=== PATIENT | male | born 1955 | race Caucasian/White ===

== ENCOUNTER 2018-04-11 18:24 | Emergency (ER) | payer MEDICARE, SELFPAY ==
[2018-04-11 18:25] VITALS: BP 163/95; PULSE 101; RESP 20; TEMP 38.3; O2SAT 97; BMI 20.2
[2018-04-11 21:21] VITALS: BP 151/94; PULSE 90; RESP 17; TEMP 38.4; O2SAT 97
--- NOTE | 2018-04-11 21:32 | ED.RN ---
talked to dr walsh about pt's clinica presentation and asked to order flu, tylenol, and strep test. verbal order given.
[2018-04-11] MEDS: Acetaminophen 500 MG Tablet 1000 MG PO (21:55)
--- NOTE | 2018-04-11 21:55 | RAD_ITS ---
STUDY: X-RAY CHEST REASON FOR EXAM: Male, 63 years old. Fever and sore throat TECHNIQUE: Frontal and lateral views of the chest. COMPARISON: None. FINDINGS: The lungs are clear and expanded. There is no demonstrated pleural abnormality. Normal size heart. Normal mediastinum and quan. Normal visualized pulmonary arteries. Normal visualized aortic arch and descending thoracic aorta. Normal visualized thoracic spine. Normal visualized ribs, clavicles, and shoulders. There is no demonstrated abnormality of the visualized soft tissue structures of the upper abdomen. RAD/Chest PA and Lateral IMPRESSION: Normal x-ray examination of the chest. Electronically Signed: Vance Mahoney MD at 22:43 EST Tel , Service support ,
--- NOTE | 2018-04-11 22:05 | ED.DCSUM_ITS ---
- ER Visit Summary Date of Service: 04/11/18 Chief Complaint: Fever and sore throat History of Present Illness: The patient is a 63 M who presents with sore throat and fever that has been getting worse over the past 5 days. Patient states he noticed a fever at home but did not take his temperature. Patient states his throat feels like it is raw. Patient states it is worse with swallowing. Patient admits to a cough. Patient denies any sputum production. Patient admits to nausea but denies any vomiting. Patient denies any chest pain. Physical Examination: Vital signs are stable. Patient has a temperature of 101.2. Patient is in no acute distress. Oral mucosa is pink and moist. Oropharynx is erythematous. There is no exudate noted. Neck is supple. Trachea is midline. There is no JVD noted. There is no lymphadenopathy noted. Heart was regular rate and rhythm. Lungs are clear and equal bilateral. Abdomen is soft. Bowel sounds are normal. Cranial nerves II through XII are intact. There are no focal motor or sensory deficits noted. The remaining physical exam is within normal limits. Test Results: CBC and metabolic profile were obtained and were normal. Rapid flu swab was obtained and was negative. Rapid strep was negative. PA and lateral chest x-ray was obtained. There is no acute cardiopulmonary process. Emergency Department Course and Treatment: Patient was given a dose of Tylenol here. Patient was feeling better on reevaluation. Patient was advised that this is most likely a viral upper respiratory infection. Patient was instructed to continue Tylenol or Motrin as needed for any pain or fevers. Patient was instructed to follow-up with his primary care physician in 7-10 days. Patient understood and was agreeable with the plan. All questions were answered. Disposition: Discharge home Impression: Viral upper respiratory infection This note was generated with [employer] dictation software. It may contain incorrect words, spelling, and punctuation that were not noted in review of the chart prior to signing ED Disposition - Plan for ED Patient: Disposition: Home or Assisted Living Diagnosis: Viral upper respiratory tract infection with cough Instructions: ED Pharyngitis Viral Referrals: Edmundo Sharpe DO [Primary Care Provider] -
[2018-04-11 22:16] LABS: Absolute Lymphocyte Count 0.74 X10^3/ul (0.83-4.51); Absolute Neutrophil Count 5.2 X10^3/uL (2.0-7.7); Basophil# 0.04 X10^3/uL; Basophil% 0.6 % (0-1); Hematocrit 44.4 % (40-54); Hemoglobin 15.5 g/dl (13.0-16.5); Lymphocyte # 0.74 X10^3/ul (4.0); Lymphocyte % 10.9 % (19-41); Mean Corp Hgb Conc 34.9 g/gl (32-36); Mean Corpuscular Volume 91.7 fL (80-94); Mean Platelet Vol. 10.7 fl (6.2-12.0); Monocyte# 0.76 X10^3/uL; Monocyte% 11.2 % (0-10); Neutrophil # 5.24 X10^3/uL (2.7-7.7); Neutrophil % 77.2 % (47-70); Platelet Count 162 K/mm3 (150-450); RBC Distribution Width SD 43.6 fl (35.1-43.9); Red Blood Count 4.84 M/mm3 (4.6-6.2); White Blood Count 6.8 K/mm3 (4.4-11.0)
[2018-04-11 22:17] LABS: POSITIVE COUNT NO; POSITIVE DIFFERENTIAL NO; POSITIVE MORPHOLOGY NO
[2018-04-11 22:20] VITALS: BP 143/90; PULSE 74; RESP 18; TEMP 38.4; O2SAT 96
[2018-04-11 22:29] LABS: Anion Gap 9 (5-15); BUN 18 mg/dL (7-18); BUN/Creat Ratio 20.9 RATIO (10-20); Calcium,Total 8.2 mg/dL (8.5-10.1); Chloride 102 mmol/L (98-107); Creatinine, Serum 0.86 mg/dL (0.70-1.30); EST Glomerular Filtration Rate 96 mL/min (>60); Est Glom Filt Rate - Afr Amer 116 mL/min (>60); Estimated Creatinine Clearance 86.23 ml/min; Glucose 113 mg/dL (74-106); Potassium 3.9 mmol/L (3.5-5.1); Sodium Level 134 mmol/L (136-145)
[2018-04-12 00:04] VITALS: BP 136/83; PULSE 73; RESP 14; TEMP 37.6; O2SAT 99
== END 2018-04-12 00:04 | disposition home or self-care (01) ==
PROVIDERS: Emergency Provider Emergency Medicine; Family Provider Family Medicine; PCP Family Medicine
DX: J06.9 Acute upper respiratory infection, unspecified (principal); I10 Essential (primary) hypertension; I49.9 Cardiac arrhythmia, unspecified; Z79.899 Other long term (current) drug therapy; Z72.0 Tobacco use
CPT/HCPCS: 71046; 80048; 85025; 87804; 87880; 99284; A4216

== ENCOUNTER 2018-08-05 17:55 | Emergency (ER) | payer MEDICARE, SELFPAY ==
[2018-08-05 17:56] VITALS: BP 139/71; PULSE 63; RESP 17; TEMP 36.9; O2SAT 98; BMI 21.0
--- NOTE | 2018-08-05 19:45 | ED.DCSUM_ITS ---
- ER Visit Summary Date of Service: 08/05/18 Chief Complaint: Dressing change/wound check History of Present Illness: The patient is a 63 M who is here because he wants his dressings changed and would like his wound checked. On August 02 his fingers got caught in a running lawnmower. He went to [facility]. They cleansed his wounds and dressed them. They gave him an antibiotic cream. He states that they did have some slight bleeding but otherwise he denies any drainage. Has not noticed any redness. He denies any significant pain. Physical Examination: Vital signs are reviewed. Right hand, third and fourth fingers shows healing wounds distally. There is no erythema or drainage. Overall these wounds look well. Test Results: None performed Emergency Department Course and Treatment: Patient had his wounds cleansed. They look very well. There is no signs of infection. I feel he can be discharged with new dressings. He will follow-up with his doctors next week. Treatment Plan: [] Disposition: Discharge Impression: Wound check, right third and fourth fingers This note was generated with [employer] dictation software. It may contain incorrect words, spelling, and punctuation that were not noted in review of the chart prior to signing ED Disposition - Plan for ED Patient: Disposition: Home or Assisted Living Instructions: ED Wound Check Post Op No Infec Referrals: Edmundo Sharpe DO [Primary Care Provider] -
== END 2018-08-05 20:23 | disposition home or self-care (01) ==
PROVIDERS: Emergency Provider Emergency Medicine; Family Provider Family Medicine; PCP Family Medicine
DX: Z48.00 Encounter for change or removal of nonsurgical wound dressing (principal); I10 Essential (primary) hypertension; M32.9 Systemic lupus erythematosus, unspecified; Z72.0 Tobacco use
CPT/HCPCS: 99282

== ENCOUNTER 2023-02-02 18:01 | Emergency (ER) | payer MEDICARE, MEDICAID, SELFPAY ==
[2023-02-02 18:01] VITALS: BP 116/84; PULSE 117; RESP 22; TEMP 37.2; O2SAT 94; BMI 19.6
[2023-02-02 19:01] VITALS: BP 116/70; PULSE 80; RESP 12; O2SAT 95
--- NOTE | 2023-02-02 19:09 | EX.ED.DYSGE1 ---
HPI History of Present Illness Chief Complaint: Shortness of Breath Narrative Narrative: 68-year-old male presenting with cough. He states he had it for 3 weeks. He initially tried to get over this with Mucinex. He relates that he has a history of tobacco use, and sarcoidosis. Patient initially had chills, cough, congestion. He has been on 2 courses of antibiotics from the urgent care. Patient states he had a chest x-ray which showed a possible mass in the right upper lobe. Patient states he had a little bit of nausea today and went to the urgent care who told him to come to the emergency room for blood work and repeat imaging on possibly a CT scan. Patient reports to me that he has a follow-up CT scan scheduled for Sunday. He does not any fevers, chills, body aches. Eating and drinking normally. He is making normal urine and stool. He does not have any chest pain. He has a mild cough which is nonproductive. No hemoptysis. [facility] Medical History Arrhythmia Lupus Home Medications aspirin 81 mg chewable tablet 81 mg PO DAILY@0800 04/11/18 [History Last Taken Unknown] hydroxychloroquine 200 mg tablet 100 mg PO DAILYCM 04/11/18 [History Last Taken Unknown] Allergy/AdvReac Type Severity Reaction Status Date / Time amoxicillin Allergy Rash Verified 08/05/18 17:55 Social History Smoking Status: Current every day smoker tobacco type: cigarettes ROS ROS ED Constitutional Constitutional ED: Denies chills, fever(s) or sweats Eyes Eyes: Denies blurry vision or change in vision ENT ENT ED: Denies ear pain or sore throat Cardiovascular Cardiovascular: Denies chest pain, palpitations or racing heartbeat Respiratory/Chest Respiratory/Chest: Reports cough; Denies dyspnea or sputum Gastrointestinal Gastrointestinal: Denies abdominal pain, constipation, diarrhea, nausea or vomiting Genitourinary Genitourinary ED: Denies dysuria, hematuria or urinary frequency Musculoskeletal Musculoskeletal: Denies arthralgias, myalgias or neck pain Integumentary Denies abscess, Abrasions or rash Neurologic Neurologic: Denies headache(s), paresthesias or weakness Psychiatric Psychiatric: Denies anxiety, depression, suicidal ideation or suicidal thoughts Endocrine Endocrinology: Denies polydipsia or polyuria EXAM Physical Exam Const Vital Signs: 02/02/23 18:01 02/02/23 18:28 02/02/23 19:01 Temperature 99 F Temperature Source Temporal Pulse Rate 117 H 80 Respiratory Rate 22 H 12 Respiratory Effort Short of Breath Respiratory Depth Normal Respiratory Pattern Normal Blood Pressure 116/84 H 116/70 Blood Pressure Mean 94 85 Pulse Ox 94 95 Oxygen Delivery Method Room Air Room Air Positive well nourished General Appearance ED: NAD; Negative for pallor HEENT Reports moist mucous membranes Eyes PERRL and EOMs intact bilaterally Neck no lymphadenopathy Chest Wall inspection of chest normal Resp normal respiratory effort and clear to auscultation bilaterally Cardio regular rate and regular rhythm GI normal to inspection, nondistended, normoactive bowel sounds Extremity normal to inspection General Extremety ED: Negative for edema General Extremity: Negative for edema Neuro oriented x3 and CN's II-XII intact bilaterally Sensorium / Orientation: alert Psych mental status grossly normal Skin no rashes or lesions noted and no wounds General Skin Exam: Negative for jaundice or pallor MDM MDM MDM Narrative Medical decision making narrative: Well-appearing 68-year-old male presenting for evaluation. He states he was sent by the urgent care because he had a normal chest x-ray last week. He is initially treated for pneumonia x 2 with antibiotics and steroids. He continues to smoke a pack a day. Patient has not had a return of congestion. Denies chest pain. He does not any significant shortness of breath. No fevers or chills. Patient states he went to the urgent care for some nausea medicine but states his nausea resolved. He was sent to the ER for further workup. Physical exam unremarkable. Heart regular rate and rhythm without murmur. Respiratory rate normal at 12. Lungs clear to auscultation. Oxygen 95% on room air. Discussed with the patient that we can do lab work and imaging however if he has appropriate follow-up this is reasonable as he already has a CT ordered follow-up for Sunday. After discussing this at length the patient decided that he would prefer to follow-up as an outpatient. I do not believe he needs another antibiotic as he is been on 2 courses. I did give him return precautions. Impression: 1. History of pneumonia 2. History of lung mass 3. History of tobacco abuse Lab Data Attestation: I reviewed the patient's lab results. Discharge Plan Triage Chief Complaint: Shortness of Breath ED Provider: Asim Gonzalez Dx/Rx/DC Orders Instructions: ED Dyspnea Prescriptions: No Action aspirin 81 MG tablet,chewable 81 mg PO DAILY@0800 hydroxychloroquine 200 MG tablet 100 mg PO DAILYCM Primary Care Provider: Care Physician,No Primary Referrals: Edmundo Sharpe DO [Med Staff - [employer]] - Disposition Disposition: Home, Self Care
--- NOTE | 2023-02-02 20:32 | EKG12_ITS ---
Test Reason : SOB Blood Pressure : / mmHG Vent. Rate : 088 BPM Atrial Rate : 088 BPM P-R Int : 142 ms QRS Dur : 096 ms QT Int : 348 ms P-R-T Axes : 074 -09 040 degrees QTc Int : 421 ms Normal sinus rhythm Biatrial enlargement Abnormal ECG Confirmed by MARGARITA BISHOP, ROSE ([id number]), editor department MADELINE OLMSTEAD ([id number]) on 02/05/2023 1:36:46 P M Referred By: JOLYNN Confirmed By:SHREYA AVILA MD
== END 2023-02-02 19:17 | disposition home or self-care (01) ==
LOC: ED 19:08
PROVIDERS: Emergency Provider Student in an Organized Health Care Education/Training Program; Visit Provider Student in an Organized Health Care Education/Training Program
DX: R06.02 Shortness of breath (principal); F17.210 Nicotine dependence, cigarettes, uncomplicated
CPT/HCPCS: 93005; 99283; A4216

== ENCOUNTER → 2023-03-28 | Outpatient (CLI) | payer MEDICARE, MEDICAID, SELFPAY ==
--- NOTE | 2023-03-28 09:45 | RAD_ITS ---
STUDY: X-RAY - ESOPHAGUS (BARIUM SWALLOW) WITH FLUOROSCOPY REASON FOR EXAM: Male, 68 years old. Dysphagia, pharyngoesophageal phase TECHNIQUE: 19 view(s) of the esophagus were obtained following swallowing of barium. Extremely limited study. The patient would not ingest enough barium for proper evaluation. FLUOROSCOPY TIME (if supplied): (41 seconds) minutes/seconds COMPARISON: None. FINDINGS: Nondiagnostic study. Patient refused to drink appropriate amount of barium for assessment. There is evidence of right hilar mass. A CT scan of thorax is recommended for reevaluation. RAD/Esophagus Dual Contrast IMPRESSION: Nondiagnostic study. Right hilar mass. Correlation with the CT scan of the thorax is recommended for further evaluation. Electronically Signed: Alton Russ MD at 10:29 EST ,
== END | disposition home or self-care (01) ==
LOC: RAD 09:37
PROVIDERS: Referring Provider Otolaryngology Otolaryngology/Facial Plastic Surgery; Visit Provider Otolaryngology Otolaryngology/Facial Plastic Surgery
DX: R13.14 Dysphagia, pharyngoesophageal phase (principal)
CPT/HCPCS: 74221

== ENCOUNTER 2023-03-30 17:50 | Inpatient (IN) | payer MEDICARE, MEDICAID, SELFPAY ==
[2023-03-30 17:52] VITALS: BP 102/77; PULSE 164; RESP 24; TEMP 36.2; O2SAT 93; O2SAT 96; BMI 17.8
--- NOTE | 2023-03-30 18:06 | ED.VIS.GI ---
HPI HPI - GI History of Present Illness Chief Complaint: Abd Pain Informant: patient Abdominal Pain/Flank Pain Onset: Days (5) Context: Sudden Onset Timing: Intermittent Quality: Sharp and Stabbing Location: RLQ and LLQ Worsened by: Nothing Relieved by: Nothing Nausea/Vomiting/Emesis GI Symptom: Positive for Nausea; Negative for Vomiting Diarrhea/Melena/Hematochezia GI Symptom: Negative for Diarrhea, Melena or Hematochezia Associated Symptoms Associated Symptoms: Negative for Dysuria, Frequency or Hematuria Narrative Narrative: Patient presents with abdominal pain, constipation, and cough that has been getting progressively worse over the last 5 days. Patient states his pain is mainly over his lower abdomen. Patient states he has not had a bowel movement for the past 5 days. Patient describes the pain as sharp and stabbing. Patient admits to some nausea but denies any vomiting. Patient denies any dysuria, frequency, or hematuria. Patient admits to a cough but denies any sputum production. Patient denies any fevers or chills. Patient denies any chest pain. Patient states he has a history of lung cancer. Patient states he has seen an oncologist in [place] for his cancer but he did not want any treatment for it. [facility] Medical History Arrhythmia Lung cancer Lupus Home Medications aspirin 81 mg chewable tablet 81 mg PO DAILY@0800 04/11/18 [History Last Taken Unknown] hydroxychloroquine 200 mg tablet 100 mg PO DAILYCM 04/11/18 [History Last Taken Unknown] Allergy/AdvReac Type Severity Reaction Status Date / Time amoxicillin Allergy Rash Verified 08/05/18 17:55 Surgical History no surgical history no surgical history Social History Smoking Status: Former smoker ROS ROS ED Constitutional Constitutional ED: Denies chills or fever(s) Eyes Eyes: Denies blurry vision or change in vision ENT ENT ED: Denies rhinorrhea or sore throat Cardiovascular Cardiovascular: Denies chest pain or palpitations Respiratory/Chest Respiratory/Chest: Reports cough; Denies dyspnea Gastrointestinal Gastrointestinal: Reports abdominal pain, constipation and nausea; Denies vomiting Genitourinary Genitourinary ED: Denies dysuria or hematuria Musculoskeletal Musculoskeletal: Denies back pain or neck pain Integumentary Denies abscess or rash Neurologic Neurologic: Denies headache(s) or weakness Allergic/Immunologic Allergic/Immunologic ED: Denies mouth swelling or urticaria EXAM Physical Exam Const Vital Signs: 03/30/23 17:52 03/30/23 19:18 03/30/23 20:00 Temperature 97.2 F L Temperature Source Temporal Pulse Rate 164 H 117 H 135 H Respiratory Rate 24 H 23 H 22 H Blood Pressure 102/77 116/79 89/51 L Blood Pressure Mean 85 91 63 Pulse Ox 96 93 93 Oxygen Delivery Method Room Air Room Air Nasal Cannula Oxygen Flow Rate (L/min) 2 03/30/23 20:34 03/30/23 21:11 Temperature Temperature Source Pulse Rate 148 H 120 H Respiratory Rate 20 H 20 H Blood Pressure 99/67 97/60 Blood Pressure Mean 77 72 Pulse Ox 93 96 Oxygen Delivery Method Nasal Cannula Nasal Cannula Oxygen Flow Rate (L/min) 2 2 Positive well nourished and well developed General Appearance ED: well developed and NAD HEENT Reports dry mucous membranes Mouth ED: Yes dry mucous membranes Mouth: dry mucous membranes Neck supple and no JVD Resp Auscultation: wheezes expiratory wheezes and scattered wheezes Cardio Rate: tachycardic Rhythm: abnormal rhythm irregularly irregular GI Palpation: soft and tender LLQ, RLQ and suprapubic; Negative for guarding or rebound tenderness present Rectal Exam: normal sphincter tone and other Other Details: There is soft brown stool in the rectum. There were no masses palpated. Neuro CN's II-XII intact bilaterally, moves all extremities and no sensory deficits noted Sensorium / Orientation: alert Motor Exam: strength 5/5 throughout Psych mental status grossly normal and thought process normal MDM MDM MDM Narrative Medical decision making narrative: Differential diagnosis includes constipation, bowel obstruction, pneumonia, pneumothorax, urinary tract infection, cardiac dysrhythmia, cardiac ischemia, and electrolyte abnormality. EKG will be obtained to assess for cardiac dysrhythmia and cardiac ischemia. Chest x-ray will be obtained to assess for pneumonia and pneumothorax. CT scan of the abdomen pelvis will be obtained to assess for bowel obstruction, perforation, and constipation. CBC will be obtained to assess for leukocytosis and anemia. Comprehensive metabolic profile will be obtained to assess for hepatic function, renal function, and electrolyte abnormality. Urinalysis will be obtained to assess for urinary tract infection. Lab Data Attestation: I reviewed the patient's lab results. Lab results narrative: CBC was reviewed. There is mild leukocytosis of 12.7. There is a slight anemia with a hemoglobin of 11.7 and hematocrit 36.2. PT with INR and PTT were reviewed and were within normal limits. Comprehensive metabolic profile was reviewed. Creatinine was 1.5 and BUN was 24. These are increased slightly from previous results. Potassium was slightly low at 3.2. Lactate was reviewed and was normal at 1.7. High-sensitivity troponin was reviewed and was normal at 15. 2-hour repeat high-sensitivity troponin was reviewed and was normal at 15. Patient refused COVID, influenza, and RSV PCR. Labs: Laboratory Results - last 24 hr 03/30/23 03/30/23 18:45 21:49 WBC 12.7 H RBC 4.19 L Hgb 11.7 L Hct 36.2 L MCV 86.4 MCH 27.9 MCHC 32.3 RDW Std Deviation 42.7 RDW Coeff of Presley 13.6 Plt Count 423 MPV 11.9 Immature Gran % (Auto) 0.500 Neut % (Auto) 82.7 H Lymph % (Auto) 9.2 L [place] % (Auto) 6.0 Eos % (Auto) 1.0 Baso % (Auto) 0.6 Absolute Neuts (auto) 10.5 H Absolute Lymphs (auto) 1.17 Nucleated RBC % 0 PT 13.8 INR 1.1 APTT 29.0 Sodium 139 Potassium 3.2 L Chloride 104 Carbon Dioxide 29.0 Anion Gap 6 BUN 24 H Creatinine 1.50 H Estim Creat Clear Calc 40.84 Est GFR (MDRD) Af Amer 60 Est GFR (MDRD) Non-Af 50 L BUN/Creatinine Ratio 16.0 Glucose 122 H Lactic Acid 1.7 Calcium 12.5 H Total Bilirubin 0.50 AST 12 L ALT 17 Alkaline Phosphatase 89 Troponin I High Sens 15 15 Total Protein 6.6 Albumin 2.1 L Globulin 4.5 H Albumin/Globulin Ratio 0.5 L Radiography Chest X-Ray - ED: 1 View, Read by ED Physician, Read by Radiologist and - (Right lower lobe opacity suspicious for mass) Diagnostic Testing: Clinical Impression(s) from Imaging Studies Chest X-Ray 03/30/23 19:10 IMPRESSION: 1. Volume loss, right hilar/medial lower lobe opacity suspicious for collapsed or atelectatic lung. Obstructing mass is not excluded. Associated abnormal reticulations may be infectious or neoplastic in etiology. Correlation with contrast-enhanced CT of the chest is recommended. Electronically Signed: Magno Soares, at 20:05 EST , Portable chest x-ray was obtained. There is 1 view. On my independent interpretation, there is some volume loss and right lower lobe opacity. Bony thorax is normal. There is no cardiomegaly noted. Radiologist also interpreted the x-ray and agrees. Patient does have a known history of lung cancer. This opacity may be his known cancer. EKG Initial EKG: Attestation: I personally reviewed and interpreted this EKG as follows: Interpretation: Atrial Fibrillation (164) and Non-Specific ST Changes Comments: EKG was obtained. On my independent interpretation, shows atrial fibrillation with a rate of 164. QRS interval was normal at 106 ms. QTc interval was normal at 442 ms. There is left axis deviation at -46. There are nonspecific ST-T wave changes noted. Prior EKG tracings: available for review Prior: Changed (Compared to EKG dated 02/02/2023, the atrial fibrillation is new. The nonspecific ST-T wave changes are also new but these are likely related to the rapid rate) Treatment and Re-Evaluation :: Patient was given IV fluids. Patient was given a bolus of Cardizem. Patient's heart rate improved to 120 and is currently in the 120s to 130s. Patient's blood pressure was 97/60. Patient was given another fluid bolus. Patient blood pressure improved after this. Patient was advised of the need for admission to the hospital for new onset A-fib with RVR. Patient is agreeable with this. Case will be discussed with the hospitalist. Hospitalist preferred amiodarone IV bolus and drip. This was ordered. He will admit the patient to his service. He requested consulting surgery. Case will be discussed with Dr. Amato from general surgery. He will see the patient in consultation tomorrow morning. Patient understands and is agreeable with the plan. All questions were answered. Discharge Plan Triage Chief Complaint: Abd Pain ED Provider: Aleksandar John Dx/Rx/DC Orders Clinical Impression: Lung cancer, Obstipation, Atrial fibrillation with rapid ventricular response Prescriptions: No Action aspirin 81 MG tablet,chewable 81 mg PO DAILY@0800 hydroxychloroquine 200 MG tablet 100 mg PO DAILYCM Primary Care Provider: Kimmy Oswald Referrals: Care Physician,No Primary [Non-Staff] - Disposition Disposition: Acute Care Hospital [facility]
[2023-03-30] MEDS: 0.9% Normal Saline (1000mL) 1,000 ML 1000 ML IV ×2 (18:20→20:20)
--- NOTE | 2023-03-30 18:23 | EKG12_ITS ---
Test Reason : Blood Pressure : / mmHG Vent. Rate : 164 BPM Atrial Rate : 000 BPM P-R Int : 000 ms QRS Dur : 106 ms QT Int : 268 ms P-R-T Axes : 000 -46 122 degrees QTc Int : 442 ms Critical Test Result: High HR Atrial fibrillation with rapid ventricular response Left axis deviation ST & T wave abnormality, consider lateral ischemia Abnormal ECG Confirmed by Magno German ([id number]), technical writer and editor MADELINE OLMSTEAD ([id number]) on 04/03/2023 9:43:53 AM Referred By: Kiko Otero Confirmed By:Magno German
--- NOTE | 2023-03-30 18:24 | CT_ITS ---
INDICATION: Abdominal pain -- IV PO Contrast EXAMINATION: CT ABDOMEN AND PELVIS WITH CONTRAST - CT Abdomen And Pelvis W/ Contrast Injection TECHNIQUE: Helically acquired images were obtained of the abdomen and pelvis following IV contrast. A radiation dose optimization technique was used for this scan. IV Contrast dosage and agent: 100 mL of Isovue-370 Oral contrast: The Gastrografin COMPARISON: CT chest May 17, 2015. Also compared with chest x-ray March 30, 2023. FINDINGS: No intra-abdominal fat limiting assessment of the abdomen. LOWER CHEST: Dense right lower lobe consolidation with small underlying pleural effusions. Incompletely visualized right lung volume loss. No cardiomegaly or pericardial effusion. LIVER: Homogeneous. No focal mass. GALLBLADDER AND BILIARY TREE: No calcified gallstones. No gallbladder distension or wall edema. No intra- or extrahepatic biliary ductal dilation. PANCREAS: No focal cystic or solid mass. SPLEEN: Normal size without focal cystic or solid mass. ADRENAL GLANDS: No nodules. KIDNEYS, URETERS and BLADDER: Normal renal size and position. No mass. No hydronephrosis. Bladder is unremarkable. PERITONEUM: No ascites or free air. No other fluid collection. BOWEL: No evidence of acute appendicitis. Enteric contrast is passed through the small bowel into the colon. No evidence of small bowel obstruction. No fold thickening or inflammatory changes suggested. There is some stool in the cecum and descending colon but no abnormal colonic distention. The distal transverse and descending colon are collapsed. There is distention of the stool-filled rectal vault measuring 7.7 x 6.4 cm. Stool outside the colon suggesting incontinence. LYMPH NODES: No enlarged mesenteric or retroperitoneal lymph nodes. VESSELS: Aorta is non-dilated. Intimal calcifications are present. No high-grade stenosis. REPRODUCTIVE ORGANS: No significant prostate enlargement. ABDOMINAL WALL: No discrete abdominal or pelvic wall hernia. BONES: No lytic or blastic abnormality. No fracture or malalignment. Age expected degenerative changes lumbar spine with no significant central spinal canal stenosis. CT/Abdomen/Pelvis WITH Contrast IMPRESSION: 1. No acute intra-abdominal pathology. Mildly distended, stool-filled rectal vault and evidence of incontinence. 2. Suspicious right lower lobe consolidation and/or mass small right pleural effusion. Infectious etiology favored. Neoplasm could have a similar appearance. Electronically Signed: Magno Soares DO at 23:27 EST ,
[2023-03-30 18:54] LABS: Absolute Lymphocyte Count 1.17 X10^3/uL (0.83-4.51); Absolute Neutrophil Count 10.5 X10^3/uL (2.0-7.7); Basophil# 0.07 X10^3/uL; Basophil% 0.6 % (0-1); Eosinophil# 0.13 X10^3/uL; Hematocrit 36.2 % (40-54); Hemoglobin 11.7 g/dL (13.0-16.5); Lymphocyte # 1.17 X10^3/ul (0.83-4.51); Lymphocyte % 9.2 % (19-41); Mean Corp Hgb Conc 32.3 g/dL (32-36); Mean Corpuscular Hgb 27.9 pg (27.0-32.0); Mean Corpuscular Volume 86.4 fL (80-94); Mean Platelet Vol. 11.9 fl (6.2-12.0); Monocyte# 0.76 X10^3/uL; NRBC Flagged by Analyzer 0 % (0-5); Neutrophil # 10.53 X10^3/uL (2.7-7.7); Neutrophil % 82.7 % (47-70); Platelet Count 423 K/mm3 (150-450); RBC Distribution Width CV 13.6 % (11.6-14.6); RBC Distribution Width SD 42.7 fl (35.1-43.9); Red Blood Count 4.19 M/mm3 (4.6-6.2); White Blood Count 12.7 K/mm3 (4.4-11.0)
[2023-03-30 19:10] LABS: International Normalized Ratio 1.1; Prothrombin Time (Protime)PT. 13.8 SECONDS (11.7-14.9)
--- NOTE | 2023-03-30 19:10 | RAD_ITS ---
INDICATION: Cough EXAMINATION/TECHNIQUE: X-RAY - XR Chest 1 View COMPARISON: Chest x-ray April 11, 2018. FINDINGS: LINES/DEVICES: None. LUNGS: Asymmetric right-sided volume loss with asymmetric elevation right hemidiaphragm, diaphragmatic tenting and increased density medial right lower lobe suspicious for atelectatic/collapsed left lower lobe pulmonary segment. There is also significant abnormal reticulations which may be infectious or neoplastic in etiology. Correlation with CT chest is recommended. No pleural effusion or pneumothorax. Left lung is clear. There does appear to be increased lung volumes suspicious for air trapping. MEDIASTINUM AND CARDIOVASCULAR STRUCTURES: Normal size and contour of the cardiomediastinal silhouette. No evidence of pulmonary vascular congestion. BONES AND SOFT TISSUES: No fracture or focal osseous lesion. RAD/Chest 1 View (Portable) IMPRESSION: 1. Volume loss, right hilar/medial lower lobe opacity suspicious for collapsed or atelectatic lung. Obstructing mass is not excluded. Associated abnormal reticulations may be infectious or neoplastic in etiology. Correlation with contrast-enhanced CT of the chest is recommended. Electronically Signed: Magno Soares DO at 20:05 EST ,
[2023-03-30] MEDS: dilTIAZem 25 MG/5 ML Vial 20 MG IV BOLUS (19:13)
[2023-03-30 19:17] LABS: ALB/GLOB Ratio 0.5 RATIO (0.9-2.4); AST(SGOT) 12 U/L (15-37); Alanine Aminotransfer ALT/SGPT 17 U/L (16-61); Albumin, Serum 2.1 g/dL (3.2-5.0); Alkaline Phosphatase 89 U/L (45-117); Anion Gap 6 (5-15); BUN 24 mg/dL (7-18); Calcium,Total 12.5 mg/dL (8.5-10.1); Chloride 104 mmol/L (98-107); EST Glomerular Filtration Rate 50 mL/min (>60); Est Glom Filt Rate - Afr Amer 60 mL/min (>60); Estimated Creatinine Clearance 40.84 ml/min; Globulin 4.5 g/dL (2.2-4.2); Glucose 122 mg/dL (74-106); Potassium 3.2 mmol/L (3.5-5.1); Protein, Total 6.6 g/dL (6.4-8.2); Sodium Level 139 mmol/L (136-145); Troponin-I HS (w/2H Reflex) 15 pg/mL (3.0-78.0)
[2023-03-30 19:18] VITALS: BP 116/79; PULSE 117; RESP 23; O2SAT 93
[2023-03-30 19:23] LABS: Lactic Acid 1.7 mmol/L (0.4-1.9)
[2023-03-30 20:00] VITALS: BP 89/51; PULSE 135; RESP 22; O2SAT 93
[2023-03-30 20:34] VITALS: BP 99/67; PULSE 148; RESP 20; O2SAT 93
[2023-03-30 20:52] LABS: Reflex Troponin-HS? (from REC) Y
--- NOTE | 2023-03-30 21:09 | ED.RN ---
pt refused nasal swab, Dr. John informed of same.
[2023-03-30 21:11] VITALS: BP 97/60; PULSE 120; RESP 20; O2SAT 96
[2023-03-30 22:21] LABS: Troponin-I HS 15 pg/mL (3.0-78.0)
--- NOTE | 2023-03-30 23:25 | PCM.HP.STD ---
[facility] Date of Admission: 03/30/23 Date of Service: 03/30/23 Chief Complaint: Lower abdominal pain for about 5 days, did not move bowel for about 7 days. Loss of weight. [facility] Narrative NICK THACKER, is a 68 M with history of lung cancer was brought by EMS for lower abdominal pain and did not had bowel movement for about 7 days. Patient states he has not been able to eat or drink last week as it brings of cough and what ever he drinks it comes back right away. Patient diagnosed lung cancer and states his oncologist is a lady doctor in [facility]. During his hospitalization there, he had probably swallow test but patient could not tell about the result but said he had to see GI doctor. He describes abdominal pain intermittent mainly lower abdomen with discomfort with sharp pain lasting for about couple minutes several times a day. Denies blood in the stool or vomiting but has not had bowel movement for 7 days as mentioned above. No fever or chills. Patient is also lost about 30 pounds in about 4 to 5 months. Patient also has cough but denies any recent change in last 1 week. Denies any sputum production or increased shortness of breath in the last few weeks. In ED, patient was found A-fib with RVR, heart rate in 150s. Patient was given 20 mg IV Cardizem and heart rate was brought down to 120s but also caused low blood pressure 99/51 but currently it is 97/60. Therefore amiodarone IV infusion is started with bolus. He knows that he has A-fib but not on anticoagulant, reason unclear but patient said no one has told him about that. Patient had chest x-ray which shows right lower lobe consolidation. Had CT abdomen/pelvis. Twelve-lead EKG shows A-fib with RVR At 164 bpm. QRS 76 ms, QTc 442 ms, LAD, nonspecific ST-T changes [facility] Medical History Arrhythmia Lung cancer Lupus Home Medications aspirin 81 mg chewable tablet 81 mg PO DAILY@0800 04/11/18 [History Last Taken Unknown] hydroxychloroquine 200 mg tablet 100 mg PO DAILYCM 04/11/18 [History Last Taken Unknown] Allergy/AdvReac Type Severity Reaction Status Date / Time amoxicillin Allergy Rash Verified 08/05/18 17:55 Surgical History no surgical history Social History Smoking Status: Former smoker ROS ROS Narrative Constitutional: Reports chronic fatigue and weakness. No fever. HEENT: Cough while swallowing. Reports systems reviewed and no addt'l complaints, except as documented Respiratory/Chest: Mild chronic cough and dyspnea on exertion CVS: Denies chest pressure or pain. Chronic A-fib Gastrointestinal: As described in HPI Genitourinary: Denies burning urination or new urinary tract symptoms Musculoskeletal: Denies acute joint pain or limited range of motion. No acute injury Neurologic: Denies seizure-like symptoms. skin: No ulcer. No rash Endocrinology: Reports systems reviewed and no addt'l complaints, except as documented Hematologic/Lymphatic: Reports systems reviewed and no addt'l complaints, except as documented Rest 14 ROS are negative except as mentioned in HPI Vital Signs Vital Signs Vital Signs: 03/30/23 17:52 03/30/23 19:18 03/30/23 20:00 Temperature 97.2 F L Temperature Source Temporal Pulse Rate 164 H 117 H 135 H Respiratory Rate 24 H 23 H 22 H Blood Pressure 102/77 116/79 89/51 L Blood Pressure Mean 85 91 63 Pulse Ox 96 93 93 Oxygen Delivery Method Room Air Room Air Nasal Cannula Oxygen Flow Rate (L/min) 2 03/30/23 20:34 03/30/23 21:11 Temperature Temperature Source Pulse Rate 148 H 120 H Respiratory Rate 20 H 20 H Blood Pressure 99/67 97/60 Blood Pressure Mean 77 72 Pulse Ox 93 96 Oxygen Delivery Method Nasal Cannula Nasal Cannula Oxygen Flow Rate (L/min) 2 2 Weight Weight: 131 lb 6.328 oz Body Mass Index (BMI) 17.8 Physical Exam Narrative General: Alert, Oriented x3, Cooperative, BMI 17.8 kg/m? HEENT: Atraumatic, PERRLA, EOMI, Normocephalic Oral: Oral mucosa dry, tongue parched. No Gingival or Mucosal Lesions/ Ulcerations Neck: Supple, No JVD, Negative Carotid Bruits Chest wall/Lungs: Air entry diminished more in right lung base. Bilateral fine expiratory rhonchi Cardiovascular: Irregular rate, A-fib RVR, No M/G/R Abdomen: Bowel Sounds Present, Soft, Non Tender, Non-Distended : No dysuria. No renal angle tenderness. No suprapubic tenderness. Extremities: No edema, Capillary Refill Less than 3 Seconds Skin: No rashes, No breakdown Musculoskeletal: No Tenderness to Palpation of Joints or Extremities. Decreased muscle bulk of thigh and calf, extremities, chest wall muscles, intercostal and paravertebral muscles. Loss of subcutaneous fat Neurological: Cranial nerves II-XII grossly intact, DTR 2+/4. No acute focal neurological deficit. Psych/Mental Status: Normal Affect, Appropriate. Results Lab / Micro Data 03/30/23 18:45 03/30/23 18:45 Labs: Laboratory Results - last 24 hr 03/30/23 18:45: WBC 12.7 H, RBC 4.19 L, Hgb 11.7 L, Hct 36.2 L, MCV 86.4, MCH 27.9, MCHC 32.3, RDW Std Deviation 42.7, RDW Coeff of Presley 13.6, Plt Count 423, MPV 11.9, Immature Gran % (Auto) 0.500, Neut % (Auto) 82.7 H, Lymph % (Auto) 9.2 L, Weak[place] % (Auto) 6.0, Eos % (Auto) 1.0, Baso % (Auto) 0.6, Absolute Neuts (auto) 10.5 H, Absolute Lymphs (auto) 1.17, Nucleated RBC % 0, PT 13.8, INR 1.1, APTT 29.0, Sodium 139, Potassium 3.2 L, Chloride 104, Carbon Dioxide 29.0, Anion Gap 6, BUN 24 H, Creatinine 1.50 H, Estim Creat Clear Calc 40.84, Est GFR (MDRD) Af Amer 60, Est GFR (MDRD) Non-Af 50 L, BUN/Creatinine Ratio 16.0, Glucose 122 H, Lactic Acid 1.7, Calcium 12.5 H, Total Bilirubin 0.50, AST 12 L, ALT 17, Alkaline Phosphatase 89, Troponin I High Sens 15, Total Protein 6.6, Albumin 2.1 L, Globulin 4.5 H, Albumin/Globulin Ratio 0.5 L 03/30/23 21:49: Troponin I High Sens 15 Imaging Radiology Impression Chest X-Ray 03/30/23 19:10 IMPRESSION: 1. Volume loss, right hilar/medial lower lobe opacity suspicious for collapsed or atelectatic lung. Obstructing mass is not excluded. Associated abnormal reticulations may be infectious or neoplastic in etiology. Correlation with contrast-enhanced CT of the chest is recommended. Electronically Signed: Magno Medinalouise, at 20:05 EST , Assessment & Plan Assessment/Plan (1) Atrial fibrillation with rapid ventricular response: (2) Chronic constipation: PLAN: Plan This is a 68-year-old gentleman being admitted for abdominal pain and constipation for about 7 days along with history of lung cancer and loss of weight. 1. Chronic A-fib with RVR: Patient is being admitted in PCU. Started on amiodarone drip with bolus.Lovenox 1 mg/kg body weight for anticoagulation. 2 serial troponins are negative. ACS ruled out and patient does not have chest pain. 2D echo ordered for tomorrow AM. 2. Subacute abdominal pain with chronic constipation: CT abdomen individually reviewed and showed rectal wall dilatation with stool and evidence of incontinence. No acute intra-abdominal pathology. Right lower lobe consolidation with small right pleural effusion. ED physician also did rectal exam and found soft stool but no hardball. General surgery is consulted. Laxatives senna S, Dulcolax oral and suppository ordered. 3. Right lower lobe lung cancer with suspicion of pneumonia with aspiration: Patient chest x-ray and CT abdomen reviewed. Started on Levaquin and Flagyl to cover anaerobes as patient is allergic to amoxicillin. Pneumonia workup ordered. Patient refused for COVID-19, RSV and influenza as PCR 4. Possible oropharyngeal dysphagia with cough and possibility of aspiration: Speech therapy evaluation. Further management as per speech therapy recommendation. Dysphagia diet under nursing supervision. 5. Mild hypokalemia. Potassium 3.2, phosphorus low normal 2.6 therefore started on Neutra-Phos. 6. Severe chronic protein calorie malnutrition: Nutritional consult. Nutritional supplement recommended. DVT prophylaxis: On full anticoagulation. Living will/advanced directive/end of life care: Patient does not have living will or advanced directive. He states his brother is next of kin but does not have dilated power of assistant district attorney for health after discussion of benefits/risks procedures involved with full code, DNR CC arrest and DNR CC, the patient opted for full code. Patient does want artificial life support including intubation, tube feed, ventilator and/chest compression, central venous catheter, vasopressor and DC shock if needed Total time spent in [id number] encounter in discussion of advanced directive 17 minutes. Laboratory Results 03/30/23 18:45: WBC 12.7 H, RBC 4.19 L, Hgb 11.7 L, Hct 36.2 L, MCV 86.4, MCH 27.9, MCHC 32.3, RDW Std Deviation 42.7, RDW Coeff of Presley 13.6, Plt Count 423, MPV 11.9, Immature Gran % (Auto) 0.500, Neut % (Auto) 82.7 H, Lymph % (Auto) 9.2 L, Weakley % (Auto) 6.0, Eos % (Auto) 1.0, Baso % (Auto) 0.6, Absolute Neuts (auto) 10.5 H, Absolute Lymphs (auto) 1.17, Nucleated RBC % 0, PT 13.8, INR 1.1, APTT 29.0 Sodium 139, Potassium 3.2 L, Chloride 104, Carbon Dioxide 29.0, Anion Gap 6, BUN 24 H, Creatinine 1.50 H, Estim Creat Clear Calc 40.84, Est GFR (MDRD) Af Amer 60, Est GFR (MDRD) Non-Af 50 L, BUN/Creatinine Ratio 16.0, Glucose 122 H, Lactic Acid 1.7, Calcium 12.5 H, Total Bilirubin 0.50, AST 12 L, ALT 17, Alkaline Phosphatase 89, Troponin I High Sens 15, Total Protein 6.6, Albumin 2.1 L, Globulin 4.5 H, Albumin/Globulin Ratio 0.5 L 03/30/23 21:49: Troponin I High Sens 15 03/30/23 21:57: Phosphorus 2.6, Magnesium 2.2 03/30/23 23:15: Urine Color Yellow, Urine Clarity Clear, Urine pH 6.0, Ur Specific Pierce 1.020, Urine Protein 15 H, Urine Glucose (UA) Normal, Urine Ketones Negative, Urine Occult Blood Negative, Urine Nitrite Negative, Urine Bilirubin Negative, Urine Urobilinogen 1 H, Ur Leukocyte Esterase Negative, Urine RBC 0 SEEN, Urine WBC 0 SEEN, Ur Squamous Epith Cells 0 SEEN, Urine Bacteria 0 SEEN, Urine Mucus 0 SEEN Clinical Impression(s) from Imaging Studies Abdomen/Pelvis CT 03/30/23 18:24 IMPRESSION: 1. No acute intra-abdominal pathology. Mildly distended, stool-filled rectal vault and evidence of incontinence. 2. Suspicious right lower lobe consolidation and/or mass small right pleural effusion. Infectious etiology favored. Neoplasm could have a similar appearance. Chest X-Ray 03/30/23 19:10 IMPRESSION: 1. Volume loss, right hilar/medial lower lobe opacity suspicious for collapsed or atelectatic lung. Obstructing mass is not excluded. Associated abnormal reticulations may be infectious or neoplastic in etiology. Correlation with contrast-enhanced CT of the chest is recommended. Charges/Coding Visit Charges Inpatient E&M: 45525 Init Hosp L3 Procedures Hospitalists Procedures: 78968 Advncd Care Plan 30 Min
[2023-03-30 23:27] LABS: Bacteria 0 SEEN /hpf (None Seen); Mucous, Urine 0 SEEN /hpf (<or=2+); Red Blood Cells-Urine 0 SEEN /hpf (0-5); Squamous Epithelial Cells - UA 0 SEEN /hpf (0-5); White Blood Cells 0 SEEN /hpf (0-5)
[2023-03-30 23:28] LABS: Color, Urine Yellow (Yellow); Glucose, Dipstick Normal (Normal); Ketone-Dipstick Negative (Negative); Leukocyte Esterase-Dipstick Negative /ul (Negative); Nitrite-Dipstick Negative (Negative); Occult Blood-Urine Negative /ul (Negative); Protein-Dipstick 15 mg/dl (Negative); Urine Bilirubin Dipstick Negative (Negative); Urine Clarity Clear (Clear); Urine Urobilinogen 1 mg/dl (Normal)
[2023-03-30 23:40] LABS: Magnesium 2.2 mg/dL (1.6-2.6); Phosphorus 2.6 mg/dL (2.5-4.9)
[2023-03-30 23:46] VITALS: BP 105/86; PULSE 152; RESP 16
[2023-03-30] MEDS: Amiodarone 150 MG in Dextrose 5%-Water (100mL Bag) 100 ML 600 MG IV BOLUS (23:46)
[2023-03-31] VITALS (24 sets, daily range): BP systolic 95–137; BP diastolic 69–95; PULSE 84–157; RESP 16–26; TEMP 36.2–36.8; O2SAT 94–99; BMI 16.9
[2023-03-31] MEDS: Amiodarone 360 MG in Dextrose 5% Viaflo Bag 192.8 ML 33.2999999999999972 MG CONT INF (00:04)
[2023-03-31] MEDS: metroNIDAZOLE 500 MG/100 ML BAG 100 MG IV ×4 (01:16→21:45)
[2023-03-31] MEDS: Enoxaparin 60 MG/0.6 ML Syringe SC ×3 (01:19→21:45)
[2023-03-31] MEDS: 0.9% Saline Lock 10 ML Syringe IV ×2 (01:22→10:08)
[2023-03-31] MEDS: Na Biphos/Potassium Phosphate PACKET 1 PACKET PO ×4 (01:31→21:45)
[2023-03-31] MEDS: Senna/Docusate Sodium 1 Tablet 2 TABLET PO ×2 (01:31→08:04)
[2023-03-31] MEDS: Bisacodyl 5 MG Tablet 10 MG PO (01:32)
[2023-03-31] MEDS: Potassium Chloride Oral Tablet 20 MEQ 40 MEQ PO ×3 (02:08→10:08)
[2023-03-31] MEDS: levoFLOXacin IV 750 MG/150 ML BAG 100 MG IV (02:59)
[2023-03-31] MEDS: Lactated Ringers 1,000 ML 100 ML IV (03:31)
[2023-03-31 04:41] LABS: Absolute Lymphocyte Count 0.66 X10^3/uL (0.83-4.51); Absolute Neutrophil Count 6.5 X10^3/uL (2.0-7.7); Basophil# 0.04 X10^3/uL; Basophil% 0.5 % (0-1); Eosinophil# 0.09 X10^3/uL; Eosinophils% 1.2 % (0-5); Hematocrit 28.9 % (40-54); Hemoglobin 9.4 g/dL (13.0-16.5); Lymphocyte # 0.66 X10^3/ul (0.83-4.51); Lymphocyte % 8.5 % (19-41); Mean Corp Hgb Conc 32.5 g/dL (32-36); Mean Corpuscular Hgb 28.4 pg (27.0-32.0); Mean Corpuscular Volume 87.3 fL (80-94); Mean Platelet Vol. 10.9 fl (6.2-12.0); Monocyte# 0.46 X10^3/uL; Monocyte% 5.9 % (0-10); NRBC Flagged by Analyzer 0 % (0-5); Neutrophil # 6.51 X10^3/uL (2.7-7.7); Neutrophil % 83.5 % (47-70); Platelet Count 295 K/mm3 (150-450); RBC Distribution Width CV 13.7 % (11.6-14.6); RBC Distribution Width SD 43.8 fl (35.1-43.9); Red Blood Count 3.31 M/mm3 (4.6-6.2); White Blood Count 7.8 K/mm3 (4.4-11.0)
[2023-03-31] MEDS: Metoprolol Tartrate 5 MG/5 ML Vial IV ×2 (04:55→10:08)
[2023-03-31 05:14] LABS: Anion Gap 6 (5-15); BUN 22 mg/dL (7-18); BUN/Creat Ratio 17.5 RATIO (10-20); Chloride 105 mmol/L (98-107); Cholesterol 119 mg/dL (200); Creatinine, Serum 1.26 mg/dL (0.70-1.30); EST Glomerular Filtration Rate 61 mL/min (>60); Est Glom Filt Rate - Afr Amer 74 mL/min (>60); Estimated Creatinine Clearance 46.41 ml/min; Glucose 124 mg/dL (74-106); High Density Lipoprotein 40 mg/dL; Potassium 3.2 mmol/L (3.5-5.1); Sodium Level 137 mmol/L (136-145); Thyroid Stim Hormone (TSH) 0.53 uIU/mL (0.358-3.74); Triglycerides 69 mg/dL; Very Low Density Lipoprotein 14 mg/dL (5-40)
--- NOTE | 2023-03-31 05:55 | ECHOD_ITS ---
Reason For Study: ATRIAL FIBRILLATION Procedure This was a 2D Doppler, Color Flow transthoracic echocardiogram. The study was technically difficult. Patient was scanned in supine position during reflux assessment. Exam was done from the subcostal window. Exam performed portable in patient room. Left Ventricle Normal size and thickness. Moderately severe global left ventricular systolic dysfunction. The left ventricular ejection fraction is 35 %. Unable to assess diastolic dysfunction due to arrhythmia. Right Ventricle Normal RV size. Moderate global right ventricular systolic dysfunction. Atria There is severe biatrial dilatation. Mitral Valve Mild (1+) mitral valve insufficiency. Tricuspid Valve Mild tricuspid valve insufficiency. Right ventricular systolic pressure estimated to be 39 mmHg. Aortic Valve Trisinus/trileaflet aortic valve. Pulmonic Valve The pulmonic valve is not well visualized. Great Vessels The aortic root is not well visualized. Pericardium/Pleural No pericardial effusion. MMode/2D Measurements & Calculations LVIDd: 4.7 cm IVSd: 1.1 cm LVOT diam: 2.0 cm LVIDs: 3.8 cm LVPWd: 1.0 cm LVOT area: 3.0 cm2 RVDd: 4.3 cm FS: 19.5 % Ao root diam: 3.2 cm LAV(MOD-bp): 75.3 ml LVAd ap4: 29.7 cm2 LAV(MOD-bp) Indexed: 42.3 ml/m2 LVLd ap4: 8.1 cm LAV(MOD-sp2): 38.4 ml EDV(MOD-sp4): 89.1 ml LAV(MOD-sp4): 90.8 ml EDV(sp4-el): 91.9 ml LVAs ap4: 20.2 cm2 LVLs ap4: 7.5 cm ESV(MOD-sp4): 45.9 ml ESV(sp4-el): 46.4 ml EF(MOD-sp4): 48.5 % EF(sp4-el): 49.5 % SV(MOD-sp4): 43.2 ml SV(sp4-el): 45.5 ml LA A4 area: 26.7 cm2 LA dimension(2D): 3.8 cm RA A4 area: 17.2 cm2 TAPSE: 1.6 cm Time Measurements MV dec time: 0.11 sec Doppler Measurements & Calculations MV E max daruis: 66.2 cm/sec Lat Peak E' Darius: 10.8 cm/sec Med Peak E' Darius: 11.7 cm/sec E/E' lat: 6.1 E/E' med: 5.7 Ao V2 max: 134.7 cm/sec LV V1 max: 96.8 cm/sec SV(LVOT): 36.6 ml Ao max P.4 mmHg LV V1 max P.0 mmHg Ao V2 mean: 90.8 cm/sec LV V1 mean P.7 mmHg Ao mean P.8 mmHg LV V1 mean: 58.0 cm/sec Ao V2 VTI: 15.9 cm LV V1 VTI: 12.0 cm AV (velocity ratio): 0.76 MARION(I,D): 2.3 cm2 MAROIN(V,D): 2.2 cm2 PA V2 max: 79.5 cm/sec TR max darius: 247.2 cm/sec PA max PG (full): 0.88 mmHg TR max P.4 mmHg ECHO/Echo Complete Interpretation Summary The left ventricular ejection fraction is 35-40 %. Unable to assess diastolic dysfunction due to arrhythmia. Moderate global right ventricular systolic dysfunction. Mild (1+) mitral valve insufficiency. Mild tricuspid valve insufficiency. There is severe biatrial dilatation. Right ventricular systolic pressure estimated to be 39 mmHg. Ordering Physician: Kiko Otero Referring Physician: Kimmy Oswald M.D. Performed By: Geno Pandya RDCS
[2023-03-31] MEDS: Amiodarone 360 MG in Dextrose 5% Viaflo Bag 192.8 ML 16.6999999999999993 MG CONT INF (06:36)
[2023-03-31] MEDS: Aspirin 81 MG TAB.CHEW PO (08:05)
[2023-03-31] MEDS: Bisacodyl 10 MG Suppository RC (08:21)
--- NOTE | 2023-03-31 09:01 | CON.PCM.SX_ITS ---
Assessment & Plan Assessment/Plan (1) Fecal impaction of rectum: PLAN: This is a 68-year-old male with no significant history of constipation, as per his history, who presents with reports of obstipation and evidence of fecal impaction of the rectum on CT imaging last evening. Distally within the rectal vault he exhibits a nearly 8 cm diameter stool ball. More proximal to this stool burden he has a lesser?moderate?degree of stool throughout the colon. He is presently nontender with an unremarkable abdominal exam. I have shared with him the results of his CT imaging and suggested that the highest yield course of action would likely rely on serial enemas and disrupting the rectal fecal impaction rather than relying on stimulating motility from above. I discussed with him that if this was unsuccessful he may be at risk for requiring operative disimpaction under sedation. He expresses understanding and willingness to proc eed with enemas. Soapsuds enemas have been ordered 3 times daily. Meanwhile workup is ongoing for patient's presentation with A-fib with RVR (patient notes that atrial fibrillation has been a chronic arrhythmia for him). (2) Obstipation: PLAN: Likely secondary to the above (3) Hypercalcemia: PLAN: Patient with hypercalcemia in the setting of recent lung cancer diagnosis?for which he is foregoing treatment. Mr. Thacker is unable to provide the particular type of lung cancer he is diagnosed with, but the constellation of new constipation with significant hypercalcemia and recent lung cancer diagnosis is suggestive of possible paraneoplastic syndrome. I do not see that we have the ability to test for PTH related?peptide, but have gone ahe ad and ordered a vitamin D level as well as intact PTH levels to assess for his normal calcium physiology. HPI Consult Data Date of Consult: 03/31/23 HPI Narrative Reason for Consultation: Obstipation HPI Narrative: NICK THACKER, is a 68 M who presented to [facility] yesterday due to complaints of abdominal pain and obstipation for the past 6 days. He shares that he does not normally suffer from constipation but has had difficulty with his bowels dating back to roughly the turn of the new year. He also relates that it was also about the same time that he was diagnosed with lung cancer. He is under the care of an oncologist in [place], but shares that he has elected to forego treatment. Since his diagnosis he shares that he has lost a whole lot of weight . He reports that his dietary intake is limited to juices. Mr. De La Garza denies any history of GI diagnoses, but does report a remote colonoscopy some 15 years ago that he recalls was completely normal. Surgery is asked to evaluate patient for obstipation and abdominal complaints. CT imaging yesterday demonstrated no evidence of obstruction within the small bowel, however, radiology identified impacted stool within the rectal vault measuring 7.7 x 6.4 cm. Enemas were begun in the emergency department and patient shares that he has received a suppository today. [facility] Medical History Arrhythmia Lung cancer Lupus Home Medications aspirin 81 mg chewable tablet 81 mg PO DAILY@0800 04/11/18 [History Last Taken Unknown] hydroxychloroquine 200 mg tablet 100 mg PO DAILYCM 04/11/18 [History Last Taken Unknown] Allergy/AdvReac Type Severity Reaction Status Date / Time amoxicillin Allergy Rash Verified 08/05/18 17:55 Surgical History no surgical history Social History Smoking Status: Former smoker Physical Exam Const alert, oriented x3 and no apparent distress General Appearance: cooperative Nutritional Appearance: cachectic Resp Resp Narrative: Slightly tachypneic GI GI Narrative: No scars or hernia, nondistended, soft, nontender to palpation x 4 quadrants (patient gestures to his left lower quadrant as the site of his prior abdominal pain complaints) Lab / Micro Data 03/31/23 04:07 03/31/23 04:07 Labs: Laboratory Results - last 24 hr 03/30/23 18:45: WBC 12.7 H, RBC 4.19 L, Hgb 11.7 L, Hct 36.2 L, MCV 86.4, MCH 27.9, MCHC 32.3, RDW Std Deviation 42.7, RDW Coeff of Presley 13.6, Plt Count 423, MPV 11.9, Immature Gran % (Auto) 0.500, Neut % (Auto) 82.7 H, Lymph % (Auto) 9.2 L, [place] % (Auto) 6.0, Eos % (Auto) 1.0, Baso % (Auto) 0.6, Absolute Neuts (auto) 10.5 H, Absolute Lymphs (auto) 1.17, Nucleated RBC % 0, PT 13.8, INR 1.1, APTT 29.0, Sodium 139, Potassium 3.2 L, Chloride 104, Carbon Dioxide 29.0, Anion Gap 6, BUN 24 H, Creatinine 1.50 H, Estim Creat Clear Calc 40.84, Est GFR (MDRD) Af Amer 60, Est GFR (MDRD) Non-Af 50 L, BUN/Creatinine Ratio 16.0, Glucose 122 H, Lactic Acid 1.7, Calcium 12.5 H, Total Bilirubin 0.50, AST 12 L, ALT 17, Alkaline Phosphatase 89, Troponin I High Sens 15, Total Protein 6.6, Albumin 2.1 L, Globulin 4.5 H, Albumin/Globulin Ratio 0.5 L 03/30/23 21:49: Troponin I High Sens 15 03/30/23 21:57: Phosphorus 2.6, Magnesium 2.2 03/30/23 23:15: Urine Color Yellow, Urine Clarity Clear, Urine pH 6.0, Ur Specific [place] 1.020, Urine Protein 15 H, Urine Glucose (UA) Normal, Urine Ketones Negative, Urine Occult Blood Negative, Urine Nitrite Negative, Urine Bilirubin Negative, Urine Urobilinogen 1 H, Ur Leukocyte Esterase Negative, Urine RBC 0 SEEN, Urine WBC 0 SEEN, Ur Squamous Epith Cells 0 SEEN, Urine Bacteria 0 SEEN, Urine Mucus 0 SEEN 03/31/23 04:07: WBC 7.8, RBC 3.31 L, Hgb 9.4 L, Hct 28.9 L, MCV 87.3, MCH 28.4, MCHC 32.5, RDW Std Deviation 43.8, RDW Coeff of Presley 13.7, Plt Count 295, MPV 10.9, Immature Gran % (Auto) 0.400, Neut % (Auto) 83.5 H, Lymph % (Auto) 8.5 L, [place] % (Auto) 5.9, Eos % (Auto) 1.2, Baso % (Auto) 0.5, Absolute Neuts (auto) 6.5, Absolute Lymphs (auto) 0.66 L, Nucleated RBC % 0, Sodium 137, Potassium 3.2 L, Chloride 105, Carbon Dioxide 26.0, Anion Gap 6, BUN 22 H, Creatinine 1.26, Estim Creat Clear Calc 46.41, Est GFR (MDRD) Af Amer 74, Est GFR (MDRD) Non-Af 61, BUN/Creatinine Ratio 17.5, Glucose 124 H, Calcium 11.0 H, Triglycerides 69, Cholesterol 119, LDL Cholesterol 65, VLDL Cholesterol 14, HDL Cholesterol 40, TSH 0.53 Micro: Microbiology 03/31/23 02:27 Urine, Clean Catch Legionella Antigen - Final 03/31/23 02:27 Urine, Clean Catch Streptococcus pneumoniae Antigen (M - Fi nal Imaging Radiology Impression Abdomen/Pelvis CT 03/30/23 18:24 IMPRESSION: 1. No acute intra-abdominal pathology. Mildly distended, stool-filled rectal vault and evidence of incontinence. 2. Suspicious right lower lobe consolidation and/or mass small right pleural effusion. Infectious etiology favored. Neoplasm could have a similar appearance. Electronically Signed: Magno Soares DO at 23:27 EST , Chest X-Ray 03/30/23 19:10 IMPRESSION: 1. Volume loss, right hilar/medial lower lobe opacity suspicious for collapsed or atelectatic lung. Obstructing mass is not excluded. Associated abnormal reticulations may be infectious or neoplastic in etiology. Correlation with contrast-enhanced CT of the chest is recommended. Electronically Signed: Magno Soares DO at 20:05 EST , Charges/Coding Visit Charges Inpatient E&M: 28550 Subs Hosp L2
[2023-03-31 10:19] LABS: Ferritin 336 ng/mL (26-388); Iron 25 ug/dL (65-175); Iron Binding Capacity,Total 158 ug/dL (250-450); PERCENT IRON SATURATION 15.8 % (15.0-55.0)
--- NOTE | 2023-03-31 11:38 | CM.UR ---
Addendum entered by Vicente Cabezas 03/31/23 11:53: Pt states that he occasionally wears additional oxygen at home but does not know the amount or the company that provides the oxygen. Pt states that it is OK to call the daughter about this. Pt daughter called at this time and she does not know the providing company at this time. Original Note: LORNE REECE Assessment Face to Face with patient for initial transition planning/care coordination assessment. LORNE REECE introduced self and role at [facility], pt voices understanding. Pt is A&Ox3 and is resting comfortably in bed and is calm. Care providers, pharmacy, and demographics verified. Admitting dx: ABD Pain, Constipation, AFIB with RVR PCP: Margret Specialists: Pt denies Preferred Pharmacy: [facility] Insurance: [facility], [facility] Community Plan Prescription Benefit: Yes LNOK: Catia Hawkins (Daughter) Living Arrangements: Pt states that he lives with his GF in a single level apartment with one step to enter with no issues. ADLs/IADLs: Ind with ADLs. Pt GF helps with IADLs when needed. Transportation: Pt daughter. DME: PT denies all DME use e/f a shower chair. HHC/SNF: Denies History or needs Plan: TBD. 6-Click is 19. PT and OT was unable to eval at this time. Will follow for recommendations. Pt states that he wants to eventually DC home and denies SNF at this time. Will follow for potential HH needs. Pt states he wants to wait and see how he progresses in the hospital first. Leno Cabezas RN, CM
--- NOTE | 2023-03-31 12:23 | PCM.PN.HOSP ---
Reason for Visit Reason for Visit: Diagnoses Hypercalcemia (03/30/23) Unspecified atrial fibrillation (03/30/23) Fecal impaction (03/30/23) Constipation, unspecified (03/30/23) Other constipation (03/30/23) Subjective Subjective Patient admitted yesterday night for worsening abdominal pain with constipation as well as dysphagia in setting of recently diagnosed lung cancer. Patient seen at bedside this morning. Patient is thin and somewhat cachectic appearing, was otherwise sitting up fairly comfortably in bed, in no acute distress. Patient was answering questions appropriately but had very short responses to questions. Stated that he had had a very large bowel movement this morning after being given the enema prescribed by general surgery. States his abdominal pain feels improved at this time. Patient states that he has dysphagia with some solids but has been able to get liquids down without issue to this point. He denies any fevers or chills. Denies any palpitations. No other acute concerns this time. Objective Data Objective Data Vital Signs: Vital Signs Temp Pulse Resp BP Pulse Ox O2 Del Method O2 Flow Rate 98.2 F 137 H 25 H 118/94 H 95 Nasal Cannula 2 03/31/23 08:00 03/31/23 11:00 03/31/23 11:00 03/31/23 11:00 03/31/23 11:00 03/31/23 11:00 03/31/23 11:00 Oxygen Flow Rate (L/min) 2 Oxygen Delivery Method Nasal Cannula Weight: 56.9 kg Body Mass Index (BMI) 16.9 Intake & Output: Intake and Output for Last 24 Hours 03/29/23 03/30/23 03/31/23 23:59 23:59 23:59 Intake Total 2099 816.48 / 816.48 Output Total 300 / 300 Balance 2099 516.48 / 516.48 Medical Nutrition Assessment Dietitian: Malnutrition Criteria Met Start: 03/31/23 12:17 Freq: Status: Active Protocol: Document 03/31/23 12:19 AG (Rec: 03/31/23 12:19 [id number]) Nutrition Malnutrition Evidence of Malnutrition Exists Yes Malnutrition (severe): Chronic Evidenced By Suboptimal Energy Intake ( Severe),Weight Loss (Severe), Physical Changes (Severe) Clinical Problem Chronic Disease or Condition Related Malnutrition Etiology severe, chronic malnutrition related to inadequate energy intake w/ increased energy needs d/t lung cancer Signs/Symptoms as evidenced by unintentional wt loss of 34.6#/22% x 1 month , estimated PO intake meeting <50% of estimated energy needs x 1-2 months 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, 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, BMI 17.0 Status Active Problem Recommendation Dietitian Recommendations/Changes regular diet- texture/ consistency per CONTENT DESIGNER (currently pureed/thin), will add fortified foods and 240mL ensure plus high protein TID w / meals given evidence of malnutrition Lab / Micro Data 04/01/23 05:19 04/01/23 05:19 Labs: Laboratory Results - last 24 hr 03/30/23 18:45: WBC 12.7 H, RBC 4.19 L, Hgb 11.7 L, Hct 36.2 L, MCV 86.4, MCH 27.9, MCHC 32.3, RDW Std Deviation 42.7, RDW Coeff of [place]ley 13.6, Plt Count 423, MPV 11.9, Immature Gran % (Auto) 0.500, Neut % (Auto) 82.7 H, Lymph % (Auto) 9.2 L, [place] % (Auto) 6.0, Eos % (Auto) 1.0, Baso % (Auto) 0.6, Absolute Neuts (auto) 10.5 H, Absolute Lymphs (auto) 1.17, Nucleated RBC % 0, PT 13.8, INR 1.1, APTT 29.0, Sodium 139, Potassium 3.2 L, Chloride 104, Carbon Dioxide 29.0, Anion Gap 6, BUN 24 H, Creatinine 1.50 H, Estim Creat Clear Calc 40.84, Est GFR (MDRD) Af Amer 60, Est GFR (MDRD) Non-Af 50 L, BUN/Creatinine Ratio 16.0, Glucose 122 H, Lactic Acid 1.7, Calcium 12.5 H, Total Bilirubin 0.50, AST 12 L, ALT 17, Alkaline Phosphatase 89, Troponin I High Sens 15, Total Protein 6.6, Albumin 2.1 L, Globulin 4.5 H, Albumin/Globulin Ratio 0.5 L 03/30/23 21:49: Troponin I High Sens 15 03/30/23 21:57: Phosphorus 2.6, Magnesium 2.2 03/30/23 23:15: Urine Color Yellow, Urine Clarity Clear, Urine pH 6.0, Ur Specific [place] 1.020, Urine Protein 15 H, Urine Glucose (UA) Normal, Urine Ketones Negative, Urine Occult Blood Negative, Urine Nitrite Negative, Urine Bilirubin Negative, Urine Urobilinogen 1 H, Ur Leukocyte Esterase Negative, Urine RBC 0 SEEN, Urine WBC 0 SEEN, Ur Squamous Epith Cells 0 SEEN, Urine Bacteria 0 SEEN, Urine Mucus 0 SEEN 03/31/23 04:07: WBC 7.8, RBC 3.31 L, Hgb 9.4 L, Hct 28.9 L, MCV 87.3, MCH 28.4, MCHC 32.5, RDW Std Deviation 43.8, RDW Coeff of [place]ley 13.7, Plt Count 295, MPV 10.9, Immature Gran % (Auto) 0.400, Neut % (Auto) 83.5 H, Lymph % (Auto) 8.5 L, [place] % (Auto) 5.9, Eos % (Auto) 1.2, Baso % (Auto) 0.5, Absolute Neuts (auto) 6.5, Absolute Lymphs (auto) 0.66 L, Nucleated RBC % 0, Sodium 137, Potassium 3.2 L, Chloride 105, Carbon Dioxide 26.0, Anion Gap 6, BUN 22 H, Creatinine 1.26, Estim Creat Clear Calc 46.41, Est GFR (MDRD) Af Amer 74, Est GFR (MDRD) Non-Af 61, BUN/Creatinine Ratio 17.5, Glucose 124 H, Calcium 11.0 H, Iron 25 L, TIBC 158 L, Iron Saturation 15.8, Ferritin 336, Triglycerides 69, Cholesterol 119, LDL Cholesterol 65, VLDL Cholesterol 14, HDL Cholesterol 40, Folate 10.20, TSH 0.53 Micro: Microbiology 03/31/23 02:27 Urine, Clean Catch Legionella Antigen - Final 03/31/23 02:27 Urine, Clean Catch Streptococcus pneumoniae Antigen (M - Final Radiography Diagnostic Testing: Radiology Impression Abdomen/Pelvis CT 03/30/23 18:24 IMPRESSION: 1. No acute intra-abdominal pathology. Mildly distended, stool-filled rectal vault and evidence of incontinence. 2. Suspicious right lower lobe consolidation and/or mass small right pleural effusion. Infectious etiology favored. Neoplasm could have a similar appearance. Electronically Signed: Magno Soares DO at 23:27 EST , Chest X-Ray 03/30/23 19:10 IMPRESSION: 1. Volume loss, right hilar/medial lower lobe opacity suspicious for collapsed or atelectatic lung. Obstructing mass is not excluded. Associated abnormal reticulations may be infectious or neoplastic in etiology. Correlation with contrast-enhanced CT of the chest is recommended. Electronically Signed: Magno Soares, DO at 20:05 EST , Echocardiogram 03/31/23 05:55 Interpretation Summary The left ventricular ejection fraction is 35-40 %. Unable to assess diastolic dysfunction due to arrhythmia. Moderate global right ventricular systolic dysfunction. Mild (1+) mitral valve insufficiency. Mild tricuspid valve insufficiency. There is severe biatrial dilatation. Right ventricular systolic pressure estimated to be 39 mmHg. Ordering Physician: Kiko Otero Referring Physician: Kimmy Oswald M.D. Performed By: Geno Pandya RDCS Physical Exam Const alert, oriented x3 and no apparent distress Constitutional Narrative: Elderly male, thin and cachectic appearing, sitting up comfortably in bed, answering questions appropriately but with short responses, no acute distress. General Appearance: cooperative and comfortable HEENT normocephalic, head/scalp atraumatic, hearing grossly normal bilaterally and nasal mucous membranes and turbinates normal Eyes PERRL, EOMs intact bilaterally and conjunctivae normal Neck full ROM, no lymphadenopathy and supple Lymph Lymphatic: no lymphadenopathy noted Chest inspection of chest normal Resp normal respiratory effort and no use of accessory muscles Resp Narrative: Breathing comfortably on 2 L nasal cannula. Mildly decreased breath sounds in right base, otherwise good air movement throughout, no wheezing or crackles noted. Cardio no murmurs and peripheral pulses 2+ throughout Cardio Narrative: A-fib with RVR. GI normal to inspection, nondistended, normoactive bowel sounds, soft to palpation, non-tender and non-distended GI Narrative: Abdomen mildly distended, otherwise nontender and soft on palpation. Back/Spine normal ROM Extremity normal to inspection, full ROM and no pedal edema Skin no rashes or lesions noted Neuro no focal motor deficits and no sensory deficits noted Speech: speech normal Psych mental status grossly normal Assessment & Plan Assessment/Plan (1) Hypercalcemia: (2) Chronic constipation: (3) Atrial fibrillation with rapid ventricular response: (4) Lung cancer: (5) Dysphagia: PLAN: Plan Patient is a 68-year-old male who presented to [facility] ED on 03/30/2023 with worsening abdominal pain with constipation and dysphagia. 1. Abdominal pain with chronic constipation, improving ? General surgery following. CT abdomen pelvis on admit showed mildly distended, stool-filled rectal vault and evidence of incontinence. Started on soapsuds enemas on admission with multiple large bowel movements. Continue enemas 3 times daily for now per surgery recommendations. Diet as noted below. 2. Concern for oropharyngeal dysphagia ? Patient reported inability to eat and drink over the last week as it causes him to cough and it comes back up right away. MBSS was attempted on 03/28 but was a nondiagnostic study as the patient refused to drink appropriate amount of barium for assessment. Speech therapy consulted. N.p.o. for now. 3. A-fib with RVR ? History of persistent A-fib, apparently was not on home AC. Noted to be in A-fib with RVR on admission, suspected secondary to suspected volume depletion due to poor p.o. intake with possible pneumonia. Placed on amiodarone drip on admit, will continue for now. Will also continue IV Lopressor every 4 hours as needed as patient is n.p.o. Started on Lovenox 1 mg/kg BID for AC. 4. Right lower lobe lung cancer with suspected superimposed bacterial pneumonia ? Follows with oncology at [facility]. Was recently diagnosed with lung cancer after being found to have right lower lobe mass. Patient notably has opted to not undergo any treatment to this point. Chest x-ray on admit showed right hilar/medial lower lobe opacity with volume loss concerning for obstructive mass with possible infectious etiology as well. Continue treatment with IV Levaquin and IV Flagyl for now. Pneumonia workup pending. 5. Severe protein calorie malnutrition ? Patient reported 30 pound weight loss in the past 4 to 5 months. BMI 17.4 on admit. Nutrition consulted. 6. Hypercalcemia ? Calcium 12.5 on admit, corrected calcium 14.0 for low albumin. Highest suspicion is for hypercalcemia secondary to paraneoplastic syndrome in setting of lung cancer, unable to find records of what type of lung cancer patient has. PTH, vitamin D ordered. Treating with IV fluids as noted above. Monitor calcium daily. DVT prophylaxis: Lovenox 1 mg/kg BID CODE STATUS: Full code, verified Expected disposition: TBD Total clinical time spent by myself addressing the patient's medical issues, reviewing all the data, and collaborating with patient's care team: 35 minutes.
--- NOTE | 2023-03-31 14:05 | CON.PCM.GI_ITS ---
HPI Consult Data Date of Consult: 03/31/23 HPI Narrative Reason for Consultation: Dysphagia HPI Narrative: NICK THACKER, is a 68 M who presented to the ED with worsening abdominal pain. He has a history of lung cancer was brought by EMS for lower abdominal pain and did not had bowel movement for about 7 days. Patient states he has not been able to eat or drink last week as it brings of cough and what ever he drinks it comes back right away. Patient diagnosed lung cancer and states his oncologist is a lady doctor in [facility]. During his hospitalization there, he had probably swallow test but patient could not tell about the result but said he had to see GI doctor. I was consulted to see him due to persistent intermittent esophageal dysphagia. He describes abdominal pain intermittent mainly lower abdomen with discomfort with sharp pain lasting for about couple minutes several times a day. Denies blood in the stool or vomiting but has not had bowel movement for 7 days as mentioned above. No fever or chills. He was seen by general surgery Dr. [facility] a fecal impaction. Patient is also lost about 30 pounds in about 4 to 5 months. Patient also has cough but denies any recent change in last 1 week. Denies any sputum production or increased shortness of breath in the last few weeks. In ED, patient was found A-fib with RVR, heart rate in 150s. Patient was given 20 mg IV Cardizem and heart rate was brought down to 120s but also caused low blood pressure 99/51 but currently it is 97/60. Therefore amiodarone IV infusion is started with bolus. He knows that he has A-fib but not on anticoagulant. , Patient had chest x-ray which shows right lower lobe consolidation. He had a CT scan abdomen pelvis that displayed enteric contrast is passed through the small bowel into the colon. No evidence of small bowel obstruction. No fold thickening or inflammatory changes suggested. There is some stool in the cecum and descending colon but no abnormal colonic distention. The distal transverse and descending colon are collapsed. There is distention of the stool- filled rectal vault measuring 7.7 x 6.4 cm. Stool outside the colon suggesting incontinence. [facility] Medical History Arrhythmia Lung cancer Lupus Home Medications aspirin 81 mg chewable tablet 81 mg PO DAILY@0800 04/11/18 [History Last Taken Unknown] hydroxychloroquine 200 mg tablet 100 mg PO DAILYCM 04/11/18 [History Last Taken Unknown] Allergy/AdvReac Type Severity Reaction Status Date / Time amoxicillin Allergy Rash Verified 08/05/18 17:55 Surgical History no surgical history Social History Smoking Status: Former smoker ROS ROS Narrative Constitutional: Reports chronic fatigue and weakness. No fever. HEENT: Cough while swallowing. Reports systems reviewed and no addt'l complaints, except as documented Respiratory/Chest: Mild chronic cough and dyspnea on exertion CVS: Denies chest pressure or pain. Chronic A-fib Gastrointestinal: As described in HPI Genitourinary: Denies burning urination or new urinary tract symptoms Musculoskeletal: Denies acute joint pain or limited range of motion. No acute injury Neurologic: Denies seizure-like symptoms. skin: No ulcer. No rash Endocrinology: Reports systems reviewed and no addt'l complaints, except as documented Hematologic/Lymphatic: Reports systems reviewed and no addt'l complaints, except as documented Rest 14 ROS are negative except as mentioned in HPI Physical Exam Narrative General: Alert, Oriented x3, Cooperative, BMI 17.8 kg/m? HEENT: Atraumatic, PERRLA, EOMI, Normocephalic Oral: Oral mucosa dry, tongue parched. No Gingival or Mucosal Lesions/ Ulcerations Neck: Supple, No JVD, Negative Carotid Bruits Chest wall/Lungs: Air entry diminished more in right lung base. Bilateral fine expiratory rhonchi Cardiovascular: Irregular rate, A-fib RVR, No M/G/R Abdomen: Bowel Sounds Present, Soft, Non Tender, Non-Distended : No dysuria. No renal angle tenderness. No suprapubic tenderness. Extremities: No edema, Capillary Refill Less than 3 Seconds Skin: No rashes, No breakdown Musculoskeletal: No Tenderness to Palpation of Joints or Extremities. Decreased muscle bulk of thigh and calf, extremities, chest wall muscles, intercostal and paravertebral muscles. Loss of subcutaneous fat Neurological: Cranial nerves II-XII grossly intact, DTR 2+/4. No acute focal neurological deficit. Psych/Mental Status: Normal Affect, Appropriate. Medical Records Data Medical Nutrition Assessment Dietitian: Malnutrition Criteria Met Start: 03/31/23 12:17 Freq: Status: Active Protocol: Document 03/31/23 12:19 (Rec: 03/31/23 12:19 [id number]) Nutrition Malnutrition Evidence of Malnutrition Exists Yes Malnutrition (severe): Chronic Evidenced By Suboptimal Energy Intake ( Severe),Weight Loss (Severe), Physical Changes (Severe) Clinical Problem Chronic Disease or Condition Related Malnutrition Etiology severe, chronic malnutrition related to inadequate energy intake w/ increased energy needs d/t lung cancer Signs/Symptoms as evidenced by unintentional wt loss of 34.6#/22% x 1 month , estimated PO intake meeting <50% of estimated energy needs x 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, 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, BMI 17.0 Status Active Problem Recommendation Dietitian Recommendations/Changes regular diet- texture/ consistency per SOUND ENGINEERING TECHNICIAN (currently pureed/thin), will add fortified foods and 240mL ensure plus high protein TID w / meals given evidence of malnutrition Lab / Micro Data 03/31/23 04:07 03/31/23 04:07 Labs: Laboratory Results - last 24 hr 03/30/23 18:45: WBC 12.7 H, RBC 4.19 L, Hgb 11.7 L, Hct 36.2 L, MCV 86.4, MCH 27.9, MCHC 32.3, RDW Std Deviation 42.7, RDW Coeff of [place]ley 13.6, Plt Count 423, MPV 11.9, Immature Gran % (Auto) 0.500, Neut % (Auto) 82.7 H, Lymph % (Auto) 9.2 L, [place] % (Auto) 6.0, Eos % (Auto) 1.0, Baso % (Auto) 0.6, Absolute Neuts (auto) 10.5 H, Absolute Lymphs (auto) 1.17, Nucleated RBC % 0, PT 13.8, INR 1.1, APTT 29.0, Sodium 139, Potassium 3.2 L, Chloride 104, Carbon Dioxide 29.0, Anion Gap 6, BUN 24 H, Creatinine 1.50 H, Estim Creat Clear Calc 40.84, Est GFR (MDRD) Af Amer 60, Est GFR (MDRD) Non-Af 50 L, BUN/Creatinine Ratio 16.0, Glucose 122 H, Lactic Acid 1.7, Calcium 12.5 H, Total Bilirubin 0.50, AST 12 L, ALT 17, Alkaline Phosphatase 89, Troponin I High Sens 15, Total Protein 6.6, Albumin 2.1 L, Globulin 4.5 H, Albumin/Globulin Ratio 0.5 L 03/30/23 21:49: Troponin I High Sens 15 03/30/23 21:57: Phosphorus 2.6, Magnesium 2.2 03/30/23 23:15: Urine Color Yellow, Urine Clarity Clear, Urine pH 6.0, Ur Specific [place] 1.020, Urine Protein 15 H, Urine Glucose (UA) Normal, Urine Ketones Negative, Urine Occult Blood Negative, Urine Nitrite Negative, Urine Bilirubin Negative, Urine Urobilinogen 1 H, Ur Leukocyte Esterase Negative, Urine RBC 0 SEEN, Urine WBC 0 SEEN, Ur Squamous Epith Cells 0 SEEN, Urine Bacteria 0 SEEN, Urine Mucus 0 SEEN 03/31/23 04:07: WBC 7.8, RBC 3.31 L, Hgb 9.4 L, Hct 28.9 L, MCV 87.3, MCH 28.4, MCHC 32.5, RDW Std Deviation 43.8, RDW Coeff of [place] 13.7, Plt Count 295, MPV 10.9, Immature Gran % (Auto) 0.400, Neut % (Auto) 83.5 H, Lymph % (Auto) 8.5 L, [place] % (Auto) 5.9, Eos % (Auto) 1.2, Baso % (Auto) 0.5, Absolute Neuts (auto) 6.5, Absolute Lymphs (auto) 0.66 L, Nucleated RBC % 0, Sodium 137, Potassium 3.2 L, Chloride 105, Carbon Dioxide 26.0, Anion Gap 6, BUN 22 H, Creatinine 1.26, Estim Creat Clear Calc 46.41, Est GFR (MDRD) Af Amer 74, Est GFR (MDRD) Non-Af 61, BUN/Creatinine Ratio 17.5, Glucose 124 H, Calcium 11.0 H, Iron 25 L, TIBC 158 L, Iron Saturation 15.8, Ferritin 336, Triglycerides 69, Cholesterol 119, LDL Cholesterol 65, VLDL Cholesterol 14, HDL Cholesterol 40, Folate 10.20, TSH 0.53 Micro: Microbiology 03/31/23 02:27 Urine, Clean Catch Legionella Antigen - Final 03/31/23 02:27 Urine, Clean Catch Streptococcus pneumoniae Antigen (M - Final Imaging Radiology Impression Abdomen/Pelvis CT 03/30/23 18:24 IMPRESSION: 1. No acute intra-abdominal pathology. Mildly distended, stool-filled rectal vault and evidence of incontinence. 2. Suspicious right lower lobe consolidation and/or mass small right pleural effusion. Infectious etiology favored. Neoplasm could have a similar appearance. Electronically Signed: Magno Soares DO at 23:27 EST , Chest X-Ray 03/30/23 19:10 IMPRESSION: 1. Volume loss, right hilar/medial lower lobe opacity suspicious for collapsed or atelectatic lung. Obstructing mass is not excluded. Associated abnormal reticulations may be infectious or neoplastic in etiology. Correlation with contrast-enhanced CT of the chest is recommended. Electronically Signed: Magno Soares DO at 20:05 EST , Echocardiogram 03/31/23 05:55 Interpretation Summary The left ventricular ejection fraction is 35-40 %. Unable to assess diastolic dysfunction due to arrhythmia. Moderate global right ventricular systolic dysfunction. Mild (1+) mitral valve insufficiency. Mild tricuspid valve insufficiency. There is severe biatrial dilatation. Right ventricular systolic pressure estimated to be 39 mmHg. Ordering Physician: Kiko Otero Referring Physician: Kimmy Oswald M.D. Performed By: Geno Pandya RDCS Assessment & Plan Assessment/Plan (1) Atrial fibrillation with rapid ventricular response: (2) Chronic constipation: PLAN: Plan This is a 68-year-old gentleman being admitted for abdominal pain and constipation for about 7 days along with history of lung cancer and loss of weight. He also has worsening progressive esophageal and oropharyngeal dysphagia Dysphagia in the setting of lung cancer gives the possibility of pseudo achalasia secondary to a paraneoplastic syndrome. Also he has hypercalcemia which could also lead to esophageal dysphagia along with other abnormalities in the GI tract which he is experiencing such as constipation. He should undergo an upper endoscopy to evaluate his upper GI tract along with evaluation by speech therapy. Plan on performing upper endoscopy on Sunday morning 04/02/2023. N.p.o. past midnight on 04/01/2023. Charges/Coding Visit Charges Inpatient E&M: 31326 Init Hosp L3
[2023-03-31] MEDS: Metoprolol Tartrate 25 MG Tablet PO ×2 (15:12→21:45)
--- NOTE | 2023-03-31 16:44 | EKG12_ITS ---
Test Reason : Blood Pressure : / mmHG Vent. Rate : 087 BPM Atrial Rate : 087 BPM P-R Int : 150 ms QRS Dur : 108 ms QT Int : 384 ms P-R-T Axes : 071 -26 053 degrees QTc Int : 462 ms Normal sinus rhythm Right atrial enlargement Nonspecific T wave abnormality Prolonged QT Abnormal ECG Confirmed by Magno German ([id number]), electronic news gathering editor MADELINE OLMSTEAD ([id number]) on 04/03/2023 9:39:16 AM Referred By: Kiko Otero Confirmed By:Magno German
[2023-04-01 02:05] VITALS: BMI 17.4
[2023-04-01 03:45] VITALS: BP 115/77; PULSE 76; RESP 20; TEMP 36.7; O2SAT 96
[2023-04-01] MEDS: Na Biphos/Potassium Phosphate PACKET 1 PACKET PO ×2 (05:00→21:02)
[2023-04-01] MEDS: metroNIDAZOLE 500 MG/100 ML BAG 100 MG IV ×3 (05:04→21:02)
[2023-04-01 05:52] LABS: Hematocrit 30.3 % (40-54); Hemoglobin 9.5 g/dL (13.0-16.5); Mean Corp Hgb Conc 31.4 g/dL (32-36); Mean Corpuscular Hgb 27.9 pg (27.0-32.0); Mean Corpuscular Volume 89.1 fL (80-94); Mean Platelet Vol. 10.9 fl (6.2-12.0); Platelet Count 319 K/mm3 (150-450); RBC Distribution Width CV 13.9 % (11.6-14.6); RBC Distribution Width SD 45.5 fl (35.1-43.9)
[2023-04-01 06:12] LABS: Anion Gap 4 (5-15); BUN 25 mg/dL (7-18); Calcium,Total 11.9 mg/dL (8.5-10.1); Chloride 109 mmol/L (98-107); Creatinine, Serum 1.47 mg/dL (0.70-1.30); EST Glomerular Filtration Rate 51 mL/min (>60); Est Glom Filt Rate - Afr Amer 62 mL/min (>60); Estimated Creatinine Clearance 40.62 ml/min; Glucose 103 mg/dL (74-106); Phosphorus 2.7 mg/dL (2.5-4.9); Potassium 4.1 mmol/L (3.5-5.1); Sodium Level 140 mmol/L (136-145)
--- NOTE | 2023-04-01 07:00 | RAD_ITS ---
INDICATION: f/u fecal impaction EXAMINATION/TECHNIQUE: X-RAY - XR Abdomen 1 View COMPARISON: No relevant prior comparison study available FINDINGS: BOWEL GAS PATTERN: Non-obstructive. No bowel or stomach distention. FREE AIR: Not assessed on a single supine view. ORGANOMEGALY: Possible hepatomegaly. CALCIFICATIONS: No abnormal calcifications observed. LOWER CHEST: Right lower lung opacity partially visualized. BONES AND SOFT TISSUES: No acute pathology. RAD/Abdomen Single View IMPRESSION: Non-obstructive bowel gas pattern. Electronically Signed: Cody Ybarra MD at 8:19 EST ,
[2023-04-01] MEDS: levoFLOXacin IV 750 MG/150 ML BAG 100 MG IV (07:26)
[2023-04-01] MEDS: Aspirin 81 MG TAB.CHEW PO (07:26)
[2023-04-01 07:27] VITALS: PULSE 83
[2023-04-01] MEDS: Metoprolol Tartrate 25 MG Tablet PO ×2 (07:27→21:02)
[2023-04-01] MEDS: Enoxaparin 60 MG/0.6 ML Syringe SC ×2 (07:31→21:03)
[2023-04-01 09:45] VITALS: BP 125/77; PULSE 83; RESP 16; TEMP 36.2; O2SAT 95
--- NOTE | 2023-04-01 10:06 | PN.SURG_ITS ---
Subjective Subjective Patient seen and examined during AM rounds. He shares that he just recently had a bowel movement and is yet to be cleaned up. He shares he is convinced that any blockage to his bowels is now better and he reports eating breakfast without any difficulty. Objective Data Objective Data Vital Signs: Vital Signs Temp Pulse Resp BP Pulse Ox O2 Del Method O2 Flow Rate 97.2 F L 83 16 125/77 H 95 Room Air 2 04/01/23 09:45 04/01/23 09:45 04/01/23 09:45 04/01/23 09:45 04/01/23 09:45 04/01/23 09:45 04/01/23 03:45 Oxygen Flow Rate (L/min) 2 Oxygen Delivery Method Room Air Weight: 128 lb 1.417 oz Body Mass Index (BMI) 17.4 Intake & Output: Intake and Output for Last 24 Hours 03/30/23 03/31/23 04/01/23 23:59 23:59 23:59 Intake Total 2099 / 2099 2322.45 / 2442.45 445 / 445 Output Total 600 / 1050 750 / 750 Balance 2099 1722.45 / 1392.45 -305 / -305 Medical Nutrition Assessment Dietitian: Malnutrition Criteria Met Start: 03/31/23 12:17 Freq: Status: Active Protocol: Document 03/31/23 12:19 AG (Rec: 03/31/23 12:19 [id number]) Nutrition Malnutrition Evidence of Malnutrition Exists Yes Malnutrition (severe): Chronic Evidenced By Suboptimal Energy Intake ( Severe),Weight Loss (Severe), Physical Changes (Severe) Clinical Problem Chronic Disease or Condition Related Malnutrition Etiology severe, chronic malnutrition related to inadequate energy intake w/ increased energy needs d/t lung cancer Signs/Symptoms as evidenced by unintentional wt loss of 34.6#/22% x 1 month , estimated PO intake meeting <50% of estimated energy needs 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, 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, BMI 17.0 Status Active Problem Recommendation Dietitian Recommendations/Changes regular diet- texture/ consistency per SPEECH PATHOLOGY SUPERVISOR (currently pureed/thin), will add fortified foods and 240mL ensure plus high protein TID w / meals given evidence of malnutrition Lab / Micro Data 04/01/23 05:19 04/01/23 05:19 Labs: Laboratory Results - last 24 hr 03/31/23 04:07: Iron 25 L, TIBC 158 L, Iron Saturation 15.8, Ferritin 336, Folate 10.20 04/01/23 05:19: WBC 8.0, RBC 3.40 L, Hgb 9.5 L, Hct 30.3 L, MCV 89.1, MCH 27.9, MCHC 31.4 L, RDW Std Deviation 45.5 H, RDW Coeff of Presley 13.9, Plt Count 319, MPV 10.9, Sodium 140, Potassium 4.1, Chloride 109 H, Carbon Dioxide 27.0, Anion Gap 4 L, BUN 25 H, Creatinine 1.47 H, Estim Creat Clear Calc 40.62, Est GFR (MDRD) Af Amer 62, Est GFR (MDRD) Non-Af 51 L, BUN/Creatinine Ratio 17.0, Glucose 103, Calcium 11.9 H, Phosphorus 2.7, Magnesium 2.0 Micro: Microbiology 03/31/23 11:00 Sputum, Expectorated/Coughed Gram Stain - Final 03/31/23 11:00 Sputum, Expectorated/Coughed Respiratory Culture - Final 03/31/23 02:27 Urine, Clean Catch Legionella Antigen - Final 03/31/23 02:27 Urine, Clean Catch Streptococcus pneumoniae Antigen (M - Final Radiography Diagnostic Testing: Radiology Impression Echocardiogram 03/31/23 05:55 Interpretation Summary The left ventricular ejection fraction is 35-40 %. Unable to assess diastolic dysfunction due to arrhythmia. Moderate global right ventricular systolic dysfunction. Mild (1+) mitral valve insufficiency. Mild tricuspid valve insufficiency. There is severe biatrial dilatation. Right ventricular systolic pressure estimated to be 39 mmHg. Ordering Physician: Kiko Otero Referring Physician: Kimmy Oswald M.D. Performed By: Geno Pandya RDCS X-Ray 04/01/23 07:00 IMPRESSION: Non-obstructive bowel gas pattern. Electronically Signed: Cody Ybarra MD at 8:19 EST , Physical Exam Const oriented x3 and no apparent distress Resp normal respiratory effort GI GI Narrative: Nondistended, soft, nontender to palpation x 4 quadrants Assessment & Plan Assessment/Plan (1) Fecal impaction of rectum: PLAN: Patient with resumption of bowel function following soapsuds enemas yesterday. I did not see any significant rectal distention and the patient's fecal matter appears to be transiting the colon per KUB this morning. Recommend ongoing bowel regimen, however, patient is cleared to discontinue regular enemas and advance diet as tolerated. Given these improvements surgery will now sign off but remain available for future questions/concerns. Thank you for the opportunity to participate in Mr. Wakefield's care. (2) Obstipation: PLAN: Likely secondary to the above (3) Hypercalcemia: PLAN: Patient with hypercalcemia in the setting of recent lung cancer diagnosis?for which he is foregoing treatment. Mr. 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 PTH and vitamin D remain in pending status from yesterday. Could consider send out PTH related peptide. Charges/Coding Visit Charges Inpatient E&M: 91274 Subs Hosp L2
[2023-04-01 10:58] LABS: D-Dimer Quantitative (DVT/PE) 0.99 FEU/ug/m (0.27-0.49)
[2023-04-01 15:00] VITALS: BP 120/76; PULSE 77; RESP 14; TEMP 36.6; O2SAT 96
--- NOTE | 2023-04-01 15:07 | PN.HOSP_ITS ---
Reason for Visit Reason for Visit: Diagnoses Hypercalcemia (03/30/23) Unspecified atrial fibrillation (03/30/23) Fecal impaction (03/30/23) Constipation, unspecified (03/30/23) Other constipation (03/30/23) Subjective Subjective No acute events overnight. Patient seen at bedside this morning. Patient was noted to be in sinus rhythm with heart rate in the 70s to 80s, had converted back to sinus rhythm overnight. Patient was sitting up comfortably in bed this morning, in no acute distress. Appeared to have slightly improved energy from yesterday. States he has been tolerating a liquid diet without issues. Had another large bowel movement this morning and states his abdominal distention is much improved compared to admission. Denies any other acute pain or discomfort. No other acute concerns at this time. Objective Data Objective Data Vital Signs: Vital Signs Temp Pulse Resp BP Pulse Ox O2 Del Method O2 Flow Rate 97.9 F 77 14 120/76 96 Room Air 2 04/01/23 15:00 04/01/23 15:00 04/01/23 15:00 04/01/23 15:00 04/01/23 15:00 04/01/23 15:00 04/01/23 03:45 Oxygen Flow Rate (L/min) 2 Oxygen Delivery Method Room Air Weight: 58.1 kg Body Mass Index (BMI) 17.4 Intake & Output: Intake and Output for Last 24 Hours 03/30/23 03/31/23 04/01/23 23:59 23:59 23:59 Intake Total 2099 / 2099 2322.45 / 2442.45 545 / 545 Output Total 600 / 1050 950 / 950 Balance 2099 1722.45 / 1392.45 -405 / -405 Medical Nutrition Assessment Dietitian: Malnutrition Criteria Met Start: 03/31/23 12:17 Freq: Status: Active Protocol: Document 03/31/23 12:19 AG (Rec: 03/31/23 12:19 AG [id number]) Nutrition Malnutrition Evidence of Malnutrition Exists Yes Malnutrition (severe): Chronic Evidenced By Suboptimal Energy Intake ( Severe),Weight Loss (Severe), Physical Changes (Severe) Clinical Problem Chronic Disease or Condition Related Malnutrition Etiology severe, chronic malnutrition related to inadequate energy intake w/ increased energy needs d/t lung cancer Signs/Symptoms as evidenced by unintentional wt loss of 34.6#/22% x 1 month , estimated PO intake meeting <50% of estimated energy needs 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, 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, BMI 17.0 Status Active Problem Recommendation Dietitian Recommendations/Changes regular diet- texture/ consistency per IT OPERATIONS MANAGER (currently pureed/thin), will add fortified foods and 240mL ensure plus high protein TID w / meals given evidence of malnutrition Lab / Micro Data 04/01/23 05:19 04/01/23 05:19 Labs: Laboratory Results - last 24 hr 04/01/23 05:19: WBC 8.0, RBC 3.40 L, Hgb 9.5 L, Hct 30.3 L, MCV 89.1, MCH 27.9, MCHC 31.4 L, RDW Std Deviation 45.5 H, RDW Coeff of Presley 13.9, Plt Count 319, MPV 10.9, Sodium 140, Potassium 4.1, Chloride 109 H, Carbon Dioxide 27.0, Anion Gap 4 L, BUN 25 H, Creatinine 1.47 H, Estim Creat Clear Calc 40.62, Est GFR (MDRD) Af Amer 62, Est GFR (MDRD) Non-Af 51 L, BUN/Creatinine Ratio 17.0, Glucose 103, Calcium 11.9 H, Phosphorus 2.7, Magnesium 2.0 04/01/23 09:20: D-Dimer Quant (PE/DVT) 0.99 H* Micro: Microbiology 03/31/23 11:00 Sputum, Expectorated/Coughed Gram Stain - Final 03/31/23 11:00 Sputum, Expectorated/Coughed Respiratory Culture - Final 03/31/23 02:27 Urine, Clean Catch Legionella Antigen - Final 03/31/23 02:27 Urine, Clean Catch Streptococcus pneumoniae Antigen (M - Final Radiography Diagnostic Testing: Radiology Impression KUB X-Ray 04/01/23 07:00 IMPRESSION: Non-obstructive bowel gas pattern. Electronically Signed: Cody Ybarra MD at 8:19 EST , Physical Exam Const alert, oriented x3 and no apparent distress Constitutional Narrative: Elderly male, thin and cachectic appearing, sitting up comfortably in bed, answering questions appropriately but with short responses, no acute distress. General Appearance: cooperative and comfortable HEENT normocephalic, head/scalp atraumatic, hearing grossly normal bilaterally and nasal mucous membranes and turbinates normal Eyes PERRL, EOMs intact bilaterally and conjunctivae normal Neck full ROM, no lymphadenopathy and supple Lymph Lymphatic: no lymphadenopathy noted Chest inspection of chest normal Resp normal respiratory effort and no use of accessory muscles Resp Narrative: Breathing comfortably on room air. Mildly decreased breath sounds in right base, otherwise good air movement throughout, no wheezing or crackles noted. Cardio regular rate, regular rhythm, no murmurs and peripheral pulses 2+ throughout GI normal to inspection, nondistended, normoactive bowel sounds, soft to palpation, non-tender and non-distended GI Narrative: Abdomen mildly distended, otherwise nontender and soft on palpation. Back/Spine normal ROM Extremity normal to inspection, full ROM and no pedal edema Skin no rashes or lesions noted Neuro no focal motor deficits and no sensory deficits noted Speech: speech normal Psych mental status grossly normal Assessment & Plan Assessment/Plan (1) Hypercalcemia: (2) Chronic constipation: (3) Atrial fibrillation with rapid ventricular response: (4) Lung cancer: (5) Dysphagia: PLAN: Plan Patient is a 68-year-old male who presented to [facility] ED on 03/30/2023 with worsening abdominal pain with constipation and dysphagia. 1. Abdominal pain with chronic constipation, improving ? General surgery following. CT abdomen pelvis on admit showed mildly distended, stool-filled rectal vault and evidence of incontinence. Started on soapsuds enemas on admission with multiple large bowel movements. KUB 04/01 showed nonobstructive bowel gas pattern, no bowel or stomach distention. Continue bowel regimen, and was DC'd on 04/01. Surgery signed off on 04/01. 2. Concern for oropharyngeal dysphagia Patient reported inability to eat and drink over the last week as it causes him to cough and it comes back up right away. MBSS was attempted on 03/28 but was a nondiagnostic study as the patient refused to drink appropriate amount of barium for assessment. ? Speech therapy following. Recommendation on 03/31 for pur?ed diet with thin liquids, one-to-one supervision. Also recommended MBSS and GI consult for consideration of EGD. GI evaluated on 03/31, planning for EGD tomorrow, n.p.o. midnight. 3. A-fib with RVR, improved ? History of persistent A-fib, apparently was not on home AC. Noted to be in A- fib with RVR on admission, suspected secondary to suspected volume depletion due to poor p.o. intake with possible pneumonia. Placed on amiodarone drip on admit with IV lopressor as needed. Converted to normal sinus rhythm overnight on 03/31. Continue p.o. Lopressor 50 mg twice daily. Continue Lovenox 1 mg/kg twice daily for anticoagulation. 4. Right lower lobe lung cancer with suspected superimposed bacterial pneumonia ? Follows with oncology at [facility]. Was recently diagnosed with lung cancer after being found to have right lower lobe mass. Patient notably has opted to not undergo any treatment to this point. Chest x-ray on admit showed right hilar/medial lower lobe opacity with volume loss concerning for obstructive mass with possible infectious etiology as well. Continue treatment with IV Levaquin and IV Flagyl for now. Pneumonia workup pending. 5. Severe protein calorie malnutrition ? Patient reported 30 pound weight loss in the past 4 to 5 months. BMI 17.4 on admit. Nutrition consulted. 6. Hypercalcemia ? Calcium 12.5 on admit, corrected calcium 14.0 for low albumin. Highest s uspicion is for hypercalcemia secondary to paraneoplastic syndrome in setting of lung cancer, unable to find records of what type of lung cancer patient has. PTH, vitamin D ordered. Treating with IV fluids as noted above. Monitor calcium daily. 7. New onset HFrEF, concern for possible pulmonary embolism ? TTE 03/31 showed EF 35 to 40%, severe biatrial dilation, moderate global RV systolic dysfunction, RVSP estimated to be [address] 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 However, he also had concern for possible pulmonary embolism given RV dysfunction. D-dimer 03/31 of 0.99. Patient currently on room air and has SHIELA with eGFR ~40 as noted below. Will hold off on CTA chest for now, continue treatment with Lovenox 1 mg/kg twice daily as noted above. Monitor closely. 8. SHIELA versus new onset CKD ? Creatinine 1.50 on admit, no previous creatinine values since 2019, baseline appears to be around 0.8-1.0 at that time. Suspected mild SHIELA secondary to volume depletion in setting of poor p.o. intake and hypercalcemia as noted above. Creatinine mildly improved on 03/31, then worsened on 04/01. Continue to monitor BMP daily. Monitor urine output. 9. Anemia ? Hemoglobin 11.7 on admit, decreased to 9.4 on hospital day 2. Last hemoglobin values were from 2018, baseline was 14-15 at that time. MCV 89. Iron studies consistent with mild iron deficiency anemia. Folate normal, B12 pending. Monitor daily CBC. DVT prophylaxis: Lovenox 1 mg/kg BID CODE STATUS: Full code, verified Expected disposition: TBD Total clinical time spent by myself addressing the patient's medical issues, reviewing all the data, and collaborating with patient's care team: 35 minutes. Charges/Coding Visit Charges Inpatient E&M: 09148 Subs Hosp L2
[2023-04-01 21:00] VITALS: BP 136/81; PULSE 83; RESP 16; TEMP 37; O2SAT 94
[2023-04-01 21:02] VITALS: BP 136/81; PULSE 83
[2023-04-02] VITALS (13 sets, daily range): BP systolic 54–129; BP diastolic 35–105; PULSE 67–143; RESP 16–20; TEMP 36.3–37.4; O2SAT 87–96; BMI 17.2
[2023-04-02] MEDS: metroNIDAZOLE 500 MG/100 ML BAG 100 MG IV ×3 (05:18→19:36)
[2023-04-02 06:14] LABS: Absolute Lymphocyte Count 0.47 X10^3/uL (0.83-4.51); Absolute Neutrophil Count 6.7 X10^3/uL (2.0-7.7); Basophil# 0.03 X10^3/uL; Basophil% 0.4 % (0-1); Eosinophil# 0.11 X10^3/uL; Eosinophils% 1.4 % (0-5); Hematocrit 30.3 % (40-54); Hemoglobin 9.7 g/dL (13.0-16.5); Lymphocyte # 0.47 X10^3/ul (0.83-4.51); Lymphocyte % 6.1 % (19-41); Mean Corpuscular Hgb 28.4 pg (27.0-32.0); Mean Corpuscular Volume 88.6 fL (80-94); Mean Platelet Vol. 10.7 fl (6.2-12.0); Monocyte# 0.36 X10^3/uL; Monocyte% 4.7 % (0-10); NRBC Flagged by Analyzer 0 % (0-5); Neutrophil # 6.67 X10^3/uL (2.7-7.7); POSITIVE DIFFERENTIAL YES; Platelet Count 321 K/mm3 (150-450); RBC Distribution Width CV 13.8 % (11.6-14.6); RBC Distribution Width SD 44.5 fl (35.1-43.9); Red Blood Count 3.42 M/mm3 (4.6-6.2); White Blood Count 7.7 K/mm3 (4.4-11.0)
[2023-04-02 07:04] LABS: Anion Gap 5 (5-15); BUN 25 mg/dL (7-18); BUN/Creat Ratio 17.2 RATIO (10-20); Calcium,Total 11.6 mg/dL (8.5-10.1); Chloride 111 mmol/L (98-107); Creatinine, Serum 1.45 mg/dL (0.70-1.30); EST Glomerular Filtration Rate 52 mL/min (>60); Est Glom Filt Rate - Afr Amer 63 mL/min (>60); Estimated Creatinine Clearance 40.76 ml/min; Glucose 103 mg/dL (74-106); Potassium 3.6 mmol/L (3.5-5.1); Sodium Level 141 mmol/L (136-145)
[2023-04-02 07:06] LABS: Phosphorus 2.5 mg/dL (2.5-4.9)
[2023-04-02] MEDS: Metoprolol Tartrate 25 MG Tablet PO ×2 (08:14→19:42)
[2023-04-02 08:53] LABS: PTHIN < 6.3 pg/mL (18.4-80.1)
[2023-04-02 08:55] LABS: Vitamin B12 414 pg/mL (211-911)
[2023-04-02] MEDS: Lactated Ringers 1,000 ML 15 ML IV (11:28)
--- NOTE | 2023-04-02 12:30 | EGD_PTH ---
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 RE03/30/[address]: Dr. Lex Banerjee DO : 1955 BED: 1 DIS: 04/03/2023 SPEC #: [id number] RECD: 04/02/23 18:07 STATUS: CANDY RENatalee #: [id number] BARBARA: 04/02/23 12:[address]: Sincere Moffett DEPT: SURGICAL PATHOLOGY RECD BY: Ronel Landrum ENTERED: 04/03/23 08:44 SP TYPE: EGD BIOPSY OTHR DR: DO Dr. Kimmy Solomon, DO Dr. Kiko Otero MD Tissues: Duodenum, NOS Procedures: Surgery Specimen Level IV Comments: @ Ordering doctor for SUIV edited from to @ by BREA at 04/04/23814 @ Submitting doctor edited from to @ by BREA at 04/04/23814 HEADER OPERATION: EGD, biopsy PRE-OP DIAGNOSIS: Possible oropharyngeal dysphagia with cough and possibility of aspiration TISSUE SUBMITTED: Duodenum biopsy MICROSCOPIC DIAGNOSIS Duodenum, biopsy: Fragments of duodenal mucosa with acute and chronic inflammation. CHERELLE:catherine 04/04/2023 MICROSCOPIC DESCRIPTION Slides are reviewed. GROSS DESCRIPTION Received in fixative is one container labeled with the patient's name and designated duodenum biopsy. The specimen consists of multiple irregular fragments of light barnhart soft tissue that in aggregate measure 1.0 x 0.5 x 0.1 cm. The specimen is totally submitted in one cassette. / AM:catherine 04/03/2023 TC:3 CPT: 56300
--- NOTE | 2023-04-02 13:15 | OP.CCLET_ITS ---
04/02/2023 Kimmy Oswald [address] [place] [address] Re : Upper GI endoscopy procedure for Ross Weems Dear Dr. Oswald This procedure was performed on Sunday, April 02, 2023. My impressions and recommendations are as follows: Impressions : - Grade I esophageal varices. - Non-bleeding gastric ulcer with pigmented material. Treated with argon plasma coagulation (APC). - Hematin (altered blood/jprpqh-tygooh-ipwk material) in the stomach. - Non-bleeding duodenal ulcers with no stigmata of bleeding. Biopsied. Recommendations : - [facility]. - Full liquid diet. - Continue present medications. - Await pathology results. My findings are described in the full procedure note, which is enclosed. If I can be of further assistance, please feel free to contact me at . Sincerely, Sincere Moffett, 04/02/2023 1:14:31 PM This report has been signed electronically.
--- NOTE | 2023-04-02 13:15 | OP.EGD_ITS ---
Patient Name: Ross Weems Procedure Date: 04/02/2023 12:44 PM Date of : 1955 Age: 68 Procedure: Upper GI endoscopy Indications: Epigastric abdominal pain, Iron deficiency anemia Providers: Sincere Moffett DO Referring MD: Kiko Otero Medicines: Monitored Anesthesia Care Patient Profile: This is a 68 year old male. Refer to note in patient chart for documentation of history and physical. Patient has symptoms of acute epigastric abdominal pain, acute dyspepsia and acute vomiting. Complications: No immediate complications. Procedure: Pre-Anesthesia Assessment: - Prior to the procedure, a History and Physical was performed, and patient medications and allergies were reviewed. The patient is competent. The risks and benefits of the procedure and the sedation options and risks were discussed with the patient. All questions were answered and informed consent was obtained. Patient identification and proposed procedure were verified by the physician in the pre-procedure area. Mental Status Examination: alert and oriented. Prophylactic Antibiotics: The patient does not require prophylactic antibiotics. Prior Anticoagulants: The patient has taken no anticoagulant or antiplatelet agents. After reviewing the risks and benefits, the patient was deemed in satisfactory condition to undergo the procedure. The anesthesia plan was to use monitored anesthesia care (MAC). Immediately prior to administration of medications, the patient was re-assessed for adequacy to receive sedatives. The heart rate, respiratory rate, oxygen saturations, blood pressure, adequacy of pulmonary ventilation, and response to care were monitored throughout the procedure. The physical status of the patient was re-assessed after the procedure. After obtaining informed consent, the endoscope was passed under direct vision. Throughout the procedure, the patient's blood pressure, pulse, and oxygen saturations were monitored continuously. The Endoscope was introduced through the mouth, and advanced to the second part of duodenum. The upper GI endoscopy was accomplished without difficulty. The patient tolerated the procedure well. Scope In: 12:59:33 PM Scope Out: 1:06:39 PM Total Procedure Duration Time 0 hours 7 minutes 6 seconds Findings: Grade I varices were found in the upper third of the esophagus. They were 5 mm in largest diameter. One non-bleeding cratered gastric ulcer with pigmented material was found on the lesser curvature of the stomach. The lesion was 6 mm in largest dimension. Coagulation for bleeding prevention using argon plasma at 0.3 liters/minute and 20 roque was successful. Estimated blood loss was minimal. Hematin (altered blood/btzgvj-ktxvyg-apif material) was found in the stomach. Many non-bleeding superficial duodenal ulcers with no stigmata of bleeding were found in the duodenal bulb. The largest lesion was 3 mm in largest dimension. Biopsies were taken with a cold forceps for histology. Verification of patient identification for the specimen was done. Estimated blood loss was minimal. Impression: - Grade I esophageal varices. - Non-bleeding gastric ulcer with pigmented material. Treated with argon plasma coagulation (APC). - Hematin (altered blood/dilqgj-msftlx-zncp material) in the stomach. - Non-bleeding duodenal ulcers with no stigmata of bleeding. Biopsied. Recommendation: - [facility]. - Full liquid diet. - Continue present medications. - Await pathology results. Procedure Code(s): --- Professional --- 80931, 59, Esophagogastroduodenoscopy, flexible, transoral; with control of bleeding, any method 07025, 51, Esophagogastroduodenoscopy, flexible, transoral; with biopsy, single or multiple CPT copyright 2021 [employer]. All rights reserved. The codes documented in this report are preliminary and upon director of special services review may be revised to meet current compliance requirements. Sincere Moffett DO 04/02/2023 1:14:31 PM This report has been signed electronically. Number of Addenda: 0 Note Initiated On: 04/02/2023 12:44 PM
--- NOTE | 2023-04-02 14:24 | PCM.PN.HOSP ---
Reason for Visit Reason for Visit: Diagnoses Malignant neoplasm of unspecified part of unspecified bronchus or lung (03/30/23) Hypercalcemia (03/30/23) Unspecified atrial fibrillation (03/30/23) Fecal impaction (03/30/23) Constipation, unspecified (03/30/23) Other constipation (03/30/23) Dysphagia, unspecified (03/30/23) Subjective Subjective No acute events overnight. Patient seen at bedside this afternoon as he was having his EGD done this morning, patient's brother and [id number] present. Patient was sitting up comfortably in bed, conversing normally, in no acute distress. Patient stated that his upper throat felt slightly sore after the endoscopy and he was still concerned about difficulty swallowing, similar to on presentation. He otherwise denied any acute pain or discomfort. No other acute concerns this time. Objective Data Objective Data Vital Signs: Vital Signs Temp Pulse Resp BP Pulse Ox O2 Del Method O2 Flow Rate 99.3 F H 116 H 16 90/70 92 Nasal Cannula 4 04/02/23 13:15 04/02/23 14:15 04/02/23 14:15 04/02/23 14:15 04/02/23 14:15 04/02/23 14:15 04/02/23 14:15 Oxygen Flow Rate (L/min) 4 Oxygen Delivery Method Nasal Cannula Weight: 57.5 kg Body Mass Index (BMI) 17.2 Intake & Output: Intake and Output for Last 24 Hours 03/31/23 04/01/23 04/02/23 23:59 23:59 23:59 Intake Total 2322.45 / 2442.45 805 / 1045 440 / 440 Output Total 600 / 1050 1150 / 1550 1000 / 1000 Balance 1722.45 / 1392.45 -345 / -505 -560 / -560 Medical Nutrition Assessment Dietitian: Malnutrition Criteria Met Start: 03/31/23 12:17 Freq: Status: Active Protocol: Document 03/31/23 12:19 (Rec: 03/31/23 12:19 [id number]) Nutrition Malnutrition Evidence of Malnutrition Exists Yes Malnutrition (severe): Chronic Evidenced By Suboptimal Energy Intake ( Severe),Weight Loss (Severe), Physical Changes (Severe) Clinical Problem Chronic Disease or Condition Related Malnutrition Etiology severe, chronic malnutrition related to inadequate energy intake w/ increased energy needs d/t lung cancer Signs/Symptoms as evidenced by unintentional wt loss of 34.6#/22% x 1 month , estimated PO intake meeting <50% of estimated energy needs x 1-2 months DIRECTOR SURGICAL, 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, BMI 17.0 Status Active Problem Recommendation Dietitian Recommendations/Changes regular diet- texture/ consistency per DATA RECOVERY PLANNER (currently pureed/thin), will add fortified foods and 240mL ensure plus high protein TID w / meals given evidence of malnutrition Lab / Micro Data 04/02/23 05:00 04/02/23 05:00 Labs: Laboratory Results - last 24 hr 03/31/23 04:07: PTH Intact < 6.3 L 03/31/23 10:02: Vitamin B12 414 04/02/23 05:00: WBC 7.7, RBC 3.42 L, Hgb 9.7 L, Hct 30.3 L, MCV 88.6, MCH 28.4, MCHC 32.0, RDW Std Deviation 44.5 H, RDW Coeff of Presley 13.8, Plt Count 321, MPV 10.7, Immature Gran % (Auto) 0.400, Neut % (Auto) 87.0 H, Lymph % (Auto) 6.1 L, Bel[place] % (Auto) 4.7, Eos % (Auto) 1.4, Baso % (Auto) 0.4, Absolute Neuts (auto) 6.7, Absolute Lymphs (auto) 0.47 L, Nucleated RBC % 0, Sodium 141, Potassium 3.6, Chloride 111 H, Carbon Dioxide 25.0, Anion Gap 5, BUN 25 H, Creatinine 1.45 H, Estim Creat Clear Calc 40.76, Est GFR (MDRD) Af Amer 63, Est GFR (MDRD) Non-Af 52 L, BUN/Creatinine Ratio 17.2, Glucose 103, Calcium 11.6 H, Phosphorus 2.5, Magnesium 2.0 Micro: Microbiology 04/02/23 08:15 Sputum, Expectorated/Coughed Gram Stain - Final 03/31/23 11:00 Sputum, Expectorated/Coughed Gram Stain - Final 03/31/23 11:00 Sputum, Expectorated/Coughed Respiratory Culture - Final 03/31/23 02:27 Urine, Clean Catch Legionella Antigen - Final 03/31/23 02:27 Urine, Clean Catch Streptococcus pneumoniae Antigen (M - Final Physical Exam Const alert, oriented x3 and no apparent distress Constitutional Narrative: Elderly male, thin and cachectic appearing, sitting up comfortably in bed, conversing normally, no acute distress. General Appearance: cooperative and comfortable HEENT normocephalic, head/scalp atraumatic, hearing grossly normal bilaterally and nasal mucous membranes and turbinates normal Eyes PERRL, EOMs intact bilaterally and conjunctivae normal Neck full ROM, no lymphadenopathy and supple Lymph Lymphatic: no lymphadenopathy noted Chest inspection of chest normal Resp normal respiratory effort and no use of accessory muscles Resp Narrative: Breathing comfortably on room air. Mildly decreased breath sounds in right base, otherwise good air movement throughout, no wheezing or crackles noted. Cardio regular rate, regular rhythm, no murmurs and peripheral pulses 2+ throughout GI normal to inspection, nondistended, normoactive bowel sounds, soft to palpation, non-tender and non-distended Back/Spine normal ROM Extremity normal to inspection, full ROM and no pedal edema Skin no rashes or lesions noted Neuro no focal motor deficits and no sensory deficits noted Speech: speech normal Psych mental status grossly normal Assessment & Plan Assessment/Plan (1) Hypercalcemia: (2) Chronic constipation: (3) Atrial fibrillation with rapid ventricular response: (4) Lung cancer: (5) Dysphagia: PLAN: Plan Patient is a 68-year-old male who presented to [facility] ED on 03/30/2023 with worsening abdominal pain with constipation and dysphagia. 1. Abdominal pain with chronic constipation, improving ? General surgery following. CT abdomen pelvis on admit showed mildly distended, stool-filled rectal vault and evidence of incontinence. Started on soapsuds enemas on admission with multiple large bowel movements. KUB 04/01 showed nonobstructive bowel gas pattern, no bowel or stomach distention. Continue bowel regimen, and was DC'd on 04/01. Surgery signed off on 04/01. 2. Concern for oropharyngeal dysphagia Patient reported inability to eat and drink over the last week as it causes him to cough and it comes back up right away. MBSS was attempted on 03/28 but was a nondiagnostic study as the patient refused to drink appropriate amount of barium for assessment. S/p EGD on 04/02 with no overt obstruction noted. ? Speech therapy following. Recommendation is for pur?ed diet with thin liquids, one-to-one close supervision. MBSS also recommended, date/time to be determined. 3. A-fib with RVR, improved ? History of persistent A-fib, apparently was not on home AC. Noted to be in A-fib with RVR on admission, suspected secondary to suspected volume depletion due to poor p.o. intake with possible pneumonia. Placed on amiodarone drip on admit with IV lopressor as needed. Converted to normal sinus rhythm overnight on 03/31. Continue p.o. Lopressor 50 mg twice daily. Continue Lovenox 1 mg/kg twice daily for anticoagulation. 4. Right lower lobe lung cancer with suspected superimposed bacterial pneumonia ? Follows with oncology at [facility]. Was recently diagnosed with lung cancer after being found to have right lower lobe mass. Patient notably has opted to not undergo any treatment to this point. Chest x-ray on admit showed right hilar/medial lower lobe opacity with volume loss concerning for obstructive mass with possible infectious etiology as well. Pneumonia workup benign. Continue treatment with IV Levaquin and IV Flagyl for now, plan for 7-day course of antibiotics total. 5. Severe protein calorie malnutrition ? Patient reported 30 pound weight loss in the past 4 to 5 months. BMI 17.4 on admit. Nutrition following. 6. Hypercalcemia, stable ? Calcium 12.5 on admit, corrected calcium 14.0 for low albumin. Highest suspicion is for hypercalcemia secondary to paraneoplastic syndrome in setting of lung cancer, unable to find records of what type of lung cancer patient has. PTH low, vitamin D level pending. Treating with IV fluids as noted above. Monitor calcium daily. 7. New onset HFrEF, concern for possible pulmonary embolism ? TTE 03/31 showed EF 35 to 40%, severe biatrial dilation, moderate global RV systolic dysfunction, RVSP estimated to be [address] 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 However, he also had concern for possible pulmonary embolism given RV dysfunction. D-dimer 03/31 of 0.99. Patient currently on room air and has SHIELA with eGFR ~40 as noted below. Will hold off on CTA chest for now, continue treatment with Lovenox 1 mg/kg twice daily as noted above. Monitor closely. 8. SHIELA versus new onset CKD, stable ? Creatinine 1.50 on admit, no previous creatinine values since 2019, baseline appears to be around 0.8-1.0 at that time. Suspected mild SHIELA secondary to volume depletion in setting of poor p.o. intake and hypercalcemia as noted above. Creatinine mildly improved to 1.2 on 03/31, now stable at 1.4-1.5. Continue to monitor BMP daily. 9. Anemia ? Hemoglobin 11.7 on admit, decreased to 9.4 on hospital day 2. Last hemoglobin values were from 2018, baseline was 14-15 at that time. MCV 89. Iron studies consistent with mild iron deficiency anemia. Folate and B12 levels normal. Monitor daily CBC. DVT prophylaxis: Lovenox 1 mg/kg BID CODE STATUS: Full code, verified Expected disposition: Home with home health care, 1 to 2 days Total clinical time spent by myself addressing the patient's medical issues, reviewing all the data, and collaborating with patient's care team: 35 minutes. Charges/Coding Visit Charges Inpatient E&M: 03558 Subs Hosp L2
[2023-04-02] MEDS: Senna/Docusate Sodium 1 Tablet 2 TABLET PO ×2 (15:29→19:41)
[2023-04-02] MEDS: Aspirin 81 MG TAB.CHEW PO (15:29)
[2023-04-02] MEDS: 0.9% Saline Lock 10 ML Syringe IV (15:30)
[2023-04-02] MEDS: guaiFENesin 1,200 MG Tablet 1200 MG PO (19:42)
[2023-04-03 01:46] VITALS: BMI 17.3
[2023-04-03 04:23] VITALS: BP 119/70; PULSE 64; RESP 16; TEMP 36.1; O2SAT 94
[2023-04-03] MEDS: metroNIDAZOLE 500 MG/100 ML BAG 100 MG IV ×2 (05:04→13:15)
--- NOTE | 2023-04-03 07:49 | PN.GI_ITS ---
Subjective Subjective Patient is doing a lot better. He continues to have bowel movements. Objective Data Objective Data Vital Signs: Vital Signs Temp Pulse Resp BP Pulse Ox O2 Del Method O2 Flow Rate 98.1 F 72 16 115/73 94 Room Air 0 04/03/23 15:55 04/03/23 15:55 04/03/23 15:55 04/03/23 15:55 04/03/23 15:55 04/03/23 15:55 04/03/23 13:24 Oxygen Flow Rate (L/min) [ 4 AMBULATING with Oxygen #2] Oxygen Flow Rate (L/min) [ 2 AMBULATING with Oxygen #1] Oxygen Flow Rate (L/min) [ 0 AMBULATING on Room Air] Oxygen Flow Rate (L/min) [At 0 REST on Room Air] Oxygen Flow Rate (L/min) 2 Oxygen Delivery Method Room Air Weight: 127 lb 13.89 oz Body Mass Index (BMI) 17.3 Intake & Output: Intake and Output for Last 24 Hours 04/01/23 04/02/23 04/03/23 23:59 23:59 23:59 Intake Total 805 / 1045 943.25 / 943.25 590 / 590 Output Total 1150 / 1550 1600 / 1600 625 / 625 Balance -345 / -505 -656.75 / -656.75 -35 / -35 Medical Nutrition Assessment Dietitian: Malnutrition Criteria Met Start: 03/31/23 12:17 Freq: Status: Active Protocol: Document 04/03/23 13:54 AG (Rec: 04/03/23 13:54 AG Desktop) Nutrition Malnutrition Evidence of Malnutrition Exists Yes Malnutrition (severe): Chronic Evidenced By Suboptimal Energy Intake ( Severe),Weight Loss (Severe), Physical Changes (Severe) Clinical Problem Chronic Disease or Condition Related Malnutrition Etiology severe, chronic malnutrition related to inadequate energy intake w/ increased energy needs d/t lung cancer Signs/Symptoms as evidenced by unintentional wt loss of 34.6#/22% x 1 month , estimated PO intake meeting <50% of estimated energy needs x 1-2 months 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, 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, BMI 17.0 Status Active Problem Recommendation Dietitian Recommendations/Changes regular diet- texture/ consistency per LIMEROCK TOWER LOADER, will add fortified foods and magic cup w/ dinner given evidence of malnutrition Lab / Micro Data 04/02/23 05:00 04/03/23 06:35 Labs: Laboratory Results - last 24 hr 03/31/23 10:02: Vit D 1,25-Dihydroxy 15.6 L 04/03/23 06:35: Sodium 141, Potassium 3.5, Chloride 111 H, Carbon Dioxide 25.0, Anion Gap 5, BUN 25 H, Creatinine 1.41 H, Estim Creat Clear Calc 42.28, Est GFR (MDRD) Af Amer 65, Est GFR (MDRD) Non-Af 53 L, BUN/Creatinine Ratio 17.7, G lucose 138 H, Calcium 11.9 H, Phosphorus 2.5, Magnesium 2.1 Micro: Microbiology 04/02/23 08:15 Sputum, Expectorated/Coughed Gram Stain - Final 04/02/23 08:15 Sputum, Expectorated/Coughed Respiratory Culture - Preliminary Appears to be normal respiratory ruth. Further studies to follow. 03/31/23 11:00 Sputum, Expectorated/Coughed Gram Stain - Final 03/31/23 11:00 Sputum, Expectorated/Coughed Respiratory Culture - Final 03/31/23 02:27 Urine, Clean Catch Legionella Antigen - Final 03/31/23 02:27 Urine, Clean Catch Streptococcus pneumoniae Antigen (M - Final Physical Exam Const alert, oriented x3 and no apparent distress Constitutional Narrative: Elderly male, thin and cachectic appearing, sitting up comfortably in bed, conversing normally, no acute distress. General Appearance: cooperative and comfortable HEENT normocephalic, head/scalp atraumatic, hearing grossly normal bilaterally and nasal mucous membranes and turbinates normal Eyes PERRL, EOMs intact bilaterally and conjunctivae normal Neck full ROM, no lymphadenopathy and supple Lymph Lymphatic: no lymphadenopathy noted Chest inspection of chest normal Resp normal respiratory effort and no use of accessory muscles Resp Narrative: Breathing comfortably on room air. Mildly decreased breath sounds in right base, otherwise good air movement throughout, no wheezing or crackles noted. Cardio regular rate, regular rhythm, no murmurs and peripheral pulses 2+ throughout GI normal to inspection, nondistended, normoactive bowel sounds, soft to palpation, non-tender and non-distended Back/Spine normal ROM Extremity normal to inspection, full ROM and no pedal edema Skin no rashes or lesions noted Neuro no focal motor deficits and no sensory deficits noted Speech: speech normal Psych mental status grossly normal Assessment & Plan Assessment/Plan (1) Hypercalcemia: (2) Chronic constipation: (3) Atrial fibrillation with rapid ventricular response: (4) Lung cancer: (5) Dysphagia: PLAN: Plan Patient is a 68-year-old male who presented to [facility] ED on 03/30/2023 with worsening abdominal pain with constipation and dysphagia. 1. Abdominal pain with chronic constipation, improving ? General surgery following. CT abdomen pelvis on admit showed mildly distended, stool-filled rectal vault and evidence of incontinence. Started on soapsuds enemas on admission with multiple large bowel movements. KUB 04/01 showed nonobstructive bowel gas pattern, no bowel or stomach distention. Continue bowel regimen, and was DC'd on 04/01. Surgery signed off on 04/01. 2. Concern for oropharyngeal dysphagia Patient reported inability to eat and drink over the last week as it causes him to cough and it comes back up right away. MBSS was attempted on 03/28 but was a nondiagnostic study as the patient refused to drink appropriate amount of barium for assessment. S/p EGD on 04/02 with no overt obstruction noted. ? Speech therapy following. Recommendation is for pur?ed diet with thin liquids, one-to-one close supervision. MBSS also recommended, date/time to be determined. 3. A-fib with RVR, improved ? History of persistent A-fib, apparently was not on home AC. Noted to be in A- fib with RVR on admission, suspected secondary to suspected volume depletion due to poor p.o. intake with possible pneumonia. Placed on amiodarone drip on admit with IV lopressor as needed. Converted to normal sinus rhythm overnight on 03/31. Continue p.o. Lopressor 50 mg twice daily. Continue Lovenox 1 mg/kg twice daily for anticoagulation. 4. Right lower lobe lung cancer with suspected superimposed bacterial pneumonia ? Follows with oncology at [facility]. Was recently diagnosed with lung cancer after being found to have right lower lobe mass. Patient notably has opted to not undergo any treatment to this point. Chest x-ray on admit showed right hilar/medial lower lobe opacity with volume loss concerning for obstructive mass with possible infectious etiology as well. Pneumonia workup benign. Continue treatment with IV Levaquin and IV Flagyl for now, plan for 7- day course of antibiotics total. 5. Severe protein calorie malnutrition ? Patient reported 30 pound weight loss in the past 4 to 5 months. BMI 17.4 on admit. Nutrition following. 6. Hypercalcemia, stable ? Calcium 12.5 on admit, corrected calcium 14.0 for low albumin. Highest suspicion is for hypercalcemia secondary to paraneoplastic syndrome in setting of lung cancer, unable to find records of what type of lung cancer patient has. PTH low, vitamin D level pending. Treating with IV fluids as noted above. Monitor calcium daily. 7. New onset HFrEF, concern for possible pulmonary embolism ? TTE 03/31 showed EF 35 to 40%, severe biatrial dilation, moderate global RV systolic dysfunction, RVSP estimated to be [address] 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 However, he also had concern for possible pulmonary embolism given RV dysfunction. D-dimer 03/31 of 0.99. Patient currently on room air and has SHIELA with eGFR ~40 as noted below. Will hold off on CTA chest for now, continue treatment with Lovenox 1 mg/kg twice daily as noted above. Monitor closely. 8. SHIELA versus new onset CKD, stable ? Creatinine 1.50 on admit, no previous creatinine values since 2019, baseline appears to be around 0.8-1.0 at that time. Suspected mild SHIELA secondary to volume depletion in setting of poor p.o. intake and hypercalcemia as noted above. Creatinine mildly improved to 1.2 on 03/31, now stable at 1.4-1.5. Continue to monitor BMP daily. 9. Anemia ? Hemoglobin 11.7 on admit, decreased to 9.4 on hospital day 2. Last hemoglobin values were from 2019, baseline was 14-15 at that time. MCV 89. Iron studies consistent with mild iron deficiency anemia. Folate and B12 levels normal. Monitor daily CBC. DVT prophylaxis: Lovenox 1 mg/kg BID CODE STATUS: Full code, verified Expected disposition: Home with home health care, 1 to 2 days Total clinical time spent by myself addressing the patient's medical issues, reviewing all the data, and collaborating with patient's care team: 35 minutes.
[2023-04-03 08:03] LABS: Magnesium 2.1 mg/dL (1.6-2.6); Phosphorus 2.5 mg/dL (2.5-4.9)
[2023-04-03 08:21] LABS: Anion Gap 5 (5-15); BUN 25 mg/dL (7-18); BUN/Creat Ratio 17.7 RATIO (10-20); Calcium,Total 11.9 mg/dL (8.5-10.1); Chloride 111 mmol/L (98-107); Creatinine, Serum 1.41 mg/dL (0.70-1.30); EST Glomerular Filtration Rate 53 mL/min (>60); Est Glom Filt Rate - Afr Amer 65 mL/min (>60); Estimated Creatinine Clearance 42.28 ml/min; Glucose 138 mg/dL (74-106); Potassium 3.5 mmol/L (3.5-5.1); Sodium Level 141 mmol/L (136-145)
[2023-04-03 09:10] VITALS: BP 131/74; PULSE 70; RESP 16; TEMP 36.7; O2SAT 94
[2023-04-03] MEDS: levoFLOXacin IV 750 MG/150 ML BAG 100 MG IV (09:22)
[2023-04-03 09:23] VITALS: PULSE 70
[2023-04-03] MEDS: Aspirin 81 MG TAB.CHEW PO (09:23)
[2023-04-03] MEDS: Senna/Docusate Sodium 1 Tablet 2 TABLET PO (09:23)
[2023-04-03] MEDS: Metoprolol Tartrate 25 MG Tablet PO (09:23)
[2023-04-03] MEDS: Pantoprazole Sodium 40 MG Tablet PO (11:42)
[2023-04-03 12:08] LABS: Vitamin D 1,25-Dihydroxy 15.6 pg/mL (24.8-81.5)
--- NOTE | 2023-04-03 12:19 | PN.HOSP_ITS ---
Reason for Visit Reason for Visit: Diagnoses Malignant neoplasm of unspecified part of unspecified bronchus or lung ( 4) Hypercalcemia (03/30/23) Unspecified atrial fibrillation (03/30/23) Fecal impaction (03/30/23) Constipation, unspecified (03/30/23) Other constipation (03/30/23) Dysphagia, unspecified (03/30/23) Objective Data Objective Data Vital Signs: Vital Signs Temp Pulse Resp BP Pulse Ox O2 Del Method O2 Flow Rate 98.1 F 70 16 131/74 H 94 Room Air 2 04/03/23 09:10 04/03/23 09:23 04/03/23 09:10 04/03/23 09:10 04/03/23 09:10 04/03/23 09:10 04/02/23 15:24 Oxygen Flow Rate (L/min) 2 Oxygen Delivery Method Room Air Weight: 58 kg Body Mass Index (BMI) 17.3 Intake & Output: Intake and Output for Last 24 Hours 04/01/23 04/02/23 04/03/23 23:59 23:59 23:59 Intake Total 805 / 1045 943.25 / 943.25 490 / 490 Output Total 1150 / 1550 1600 / 1600 525 / 525 Balance -345 / -505 -656.75 / -656.75 -35 / -35 Medical Nutrition Assessment Dietitian: Malnutrition Criteria Met Start: 03/31/23 12:17 Freq: Status: Active Protocol: Document 03/31/23 12:19 (Rec: 03/31/23 12:19 [id number]) Nutrition Malnutrition Evidence of Malnutrition Exists Yes Malnutrition (severe): Chronic Evidenced By Suboptimal Energy Intake ( Severe),Weight Loss (Severe), Physical Changes (Severe) Clinical Problem Chronic Disease or Condition Related Malnutrition Etiology severe, chronic malnutrition related to inadequate energy intake w/ increased energy needs d/t lung cancer Signs/Symptoms as evidenced by unintentional wt loss of 34.6#/22% x 1 month , estimated PO intake meeting <50% of estimated energy needs x 1-2 months 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, 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, BMI 17.0 Status Active Problem Recommendation Dietitian Recommendations/Changes regular diet- texture/ consistency per GRAVURE PRESS OPERATOR (currently pureed/thin), will add fortified foods and 240mL ensure plus high protein TID w / meals given evidence of malnutrition Lab / Micro Data 04/02/23 05:00 04/03/23 06:35 Labs: Laboratory Results - last 24 hr 03/31/23 10:02: Vit D 1,25-Dihydroxy 15.6 L 04/03/23 06:35: Sodium 141, Potassium 3.5, Chloride 111 H, Carbon Dioxide 25.0, Anion Gap 5, BUN 25 H, Creatinine 1.41 H, Estim Creat Clear Calc 42.28, Est GFR (MDRD) Af Amer 65, Est GFR (MDRD) Non-Af 53 L, BUN/Creatinine Ratio 17.7, Glucose 138 H, Calcium 11.9 H, Phosphorus 2.5, Magnesium 2.1 Micro: Microbiology 04/02/23 08:15 Sputum, Expectorated/Coughed Gram Stain - Final 04/02/23 08:15 Sputum, Expectorated/Coughed Respiratory Culture - Preliminary Appears to be normal respiratory ruth. Further studies to follow. 03/31/23 11:00 Sputum, Expectorated/Coughed Gram Stain - Final 03/31/23 11:00 Sputum, Expectorated/Coughed Respiratory Culture - Final 03/31/23 02:27 Urine, Clean Catch Legionella Antigen - Final 03/31/23 02:27 Urine, Clean Catch Streptococcus pneumoniae Antigen (M - Final
[2023-04-03 13:24] VITALS: O2SAT 86; O2SAT 87; O2SAT 91; O2SAT 93
--- NOTE | 2023-04-03 14:01 | DCINST_ITS ---
Discharge Instructions Diet Discharge Diet: No restrictions Activity Discharge Activity: No Restrictions Weight Bearing Status: Full weight bearing Follow Up Care Test Results: Test results from this visit will be discussed in further detail at your follow- up appointment, if applicable. Discharge Plan Admission Admit Date/Time: 03/30/23 23:18 Primary Reason for Your Visit: constipation, weight loss Attending Provider: Lex Banerjee Primary Care Provider: Kimmy Oswald Consulting Providers: Kiko Otero Instructions Additional Instructions / Restrictions: Please start taking Eliquis twice daily and Lopressor twice daily for your atrial fibrillation. Start taking pantoprazole twice daily for your acid reflux. Take 3 more days of levofloxacin and metronidazole to complete a 7-day course of antibiotics total. Please follow-up with your primary care doctor within the next 1 to 2 weeks. Please also follow-up with your cancer doctor at [facility] in the next 1 to 2 weeks as well. Discharge Orders/Prescriptions Prescriptions: New pantoprazole 40 mg Tablet,Delayed Release (Dr/Ec) 40 mg PO BID 30 Days Qty: 60 0RF metoprolol tartrate 25 mg Tablet 25 mg PO BID 30 Days Qty: 60 0RF Eliquis 5 mg tablet 5 mg PO BID 30 Days Qty: 60 0RF levofloxacin 750 mg tablet 750 mg PO DAILY 3 Days Qty: 3 0RF metronidazole 500 mg tablet 500 mg PO BID 3 Days Qty: 6 0RF Continued aspirin 81 MG tablet,chewable 81 mg PO DAILY@0800 Discontinued hydroxychloroquine 200 MG tablet 100 mg PO DAILYCM Referrals / Follow Up: Kimmy Oswald DO [Primary Care Provider] - Care Physician,No Primary [Non-Staff] - Disposition Disposition (needs filled in before D/C Order can be placed): Home, Self Care
--- NOTE | 2023-04-03 14:10 | PCM.DC.SUM ---
Providers Date of Admission: 03/30/23 Date of Discharge: 04/03/23 Primary Care Physician: Dr. Kimmy Oswald, DO Consultations 03/31/23 11:32 Consult: Gastroenterology Routine Consulting Provider: [facility] Reason for Consult: dysphagia w/ new lung ca, evaluate for EGD EMERGENT Consult: No MD Notified: Yes Date Notified: 03/31/23 Time Notified: 11:32 Method of Notification: Text Reason For Visit: ABD PAIN, CONSTIPATION, AFIB WITH RVR Diagnosis Discharge Diagnosis (1) Hypercalcemia: Status: Acute Code(s): E83.52 - Hypercalcemia (2) Chronic constipation: Status: Chronic Code(s): K59.09 - Other constipation (3) Atrial fibrillation with rapid ventricular response: Status: Acute Code(s): I48.91 - Unspecified atrial fibrillation (4) Lung cancer: Status: Acute Code(s): C34.90 - Malignant neoplasm of unspecified part of unspecified bronchus or lung (5) Dysphagia: Status: Acute Code(s): R13.10 - Dysphagia, unspecified Medications at Discharge Home Medications aspirin 81 mg chewable tablet 81 mg PO DAILY@0800 [facility] 04/11/18 apixaban 5 mg tablet (Eliquis) 5 mg PO BID 30 days #60 tabs 04/03/23 levofloxacin 750 mg tablet 750 mg PO DAILY 3 days #3 tabs 04/03/23 metoprolol tartrate 25 mg tablet 25 mg PO BID 30 days #60 tabs 04/03/23 metronidazole 500 mg tablet 500 mg PO BID 3 days #6 tabs 04/03/23 pantoprazole 40 mg tablet,delayed release 40 mg PO BID 30 days #60 tabs 04/03/23 polyethylene glycol 3350 17 gram oral powder packet (Miralax) 17 g PO DAILY 30 days #30 ea 04/03/23 sennosides 8.6 mg capsule (senna) 8.6 mg PO BID 30 days #60 caps 04/03/23 Hospital Course Operations None Procedures EGD, EKG, Transthoracic echo and - (CT abdomen pelvis with IV contrast, chest x-ray, KUB) Summary of Care Provided Minutes Spent on Discharge: 45 Hospital Course: Patient is a 68-year-old male who presented to [facility] ED on 03/30/2023 with worsening abdominal pain with constipation and dysphagia. Hospital course as noted below. Discharged home in stable condition on 04/03. 1. Abdominal pain with chronic constipation, improved CT abdomen pelvis on admit showed mildly distended, stool-filled rectal vault and evidence of incontinence. Suspected that hypercalcemia malignancy was a driving factor for his constipation. ? General surgery followed. Had multiple large bowel movements with soapsuds enemas on first few days of hospitalization. Repeat KUB 04/01 showed nonobstructive bowel gas pattern, no bowel or stomach distention. Daily MiraLAX and senna prescribed for patient on discharge. Hypercalcemia treated during hospitalization as noted below. 2. Concern for oropharyngeal dysphagia, suspected GERD Patient on admission reported inability to eat and drink over the last week as it caused him to cough and food/drink came back up right away. MBSS was attempted on 03/28 but was a nondiagnostic study as the patient refused to drink appropriate amount of barium for assessment. On further questioning, patient reported that he was able to get food and drink down, but he felt like it came back up with a burning sensation about 30 to 45 minutes after consumption. ? Speech therapy and GI followed. S/p EGD on 04/02 with no obstruction noted. Patient okay for regular diet on discharge. Discharged on p.o. PPI twice daily. 3. Paroxysmal A-fib with RVR History of paroxysmal A-fib, apparently was not on home AC. Noted to be in A-fib with RVR on admission, suspected secondary to suspected volume depletion due to poor p.o. intake with possible pneumonia. Placed on amiodarone drip on admit with IV lopressor as needed. Converted to normal sinus rhythm overnight on 03/31. ? Suspected that A-fib with RVR was primarily due to volume depletion in setting of hypercalcemia and poor p.o. intake prior to admission. Continue p.o. Lopressor 50 mg twice daily on discharge. Treated with therapeutic Lovenox while inpatient, discharged on Eliquis 5 mg twice daily. 4. 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 PTH low, vitamin D level mildly low as well. Unfortunately unable to find records of type of lung cancer found on recent biopsy but have high suspicion that patient has hypercalcemia of malignancy. Calcium level initially improved to 11.0 with IV fluids but then remained stable between 11.5 and 12 during remainder of admission. ? Discussed with Dr. Moore with endocrinology over the phone, gave 1 dose of IV pamidronate 60 mg on day of discharge. Recommend close outpatient follow-up with PCP and oncology. 5. Right lower lobe lung cancer with suspected superimposed bacterial pneumonia Follows with oncology at [facility]. Was recently diagnosed with lung cancer after being found to have right lower lobe mass, unable to find records on type of lung cancer. Patient has opted to not undergo any treatment to this point. Chest x-ray on admit showed right hilar/medial lower lobe opacity with volume loss concerning for obstructive mass with possible infectious etiology as well. Pneumonia workup benign. ? Treated with IV Levaquin and IV Flagyl while inpatient, transitioned to p.o. Flagyl and p.o. Levaquin on discharge to complete 7-day course of antibiotics total. Close outpatient follow-up with oncology. 6. Severe protein calorie malnutrition ? Patient reported 30 pound weight loss in the past 4 to 5 months, presumed secondary to cancer. BMI 17.4 on admit. Nutrition followed. 7. New onset HFrEF, concern for PE ? TTE 03/31 showed EF 35 to 40%, severe biatrial dilation, moderate global RV systolic dysfunction, RVSP estimated to be [address] 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 However, he also had concern for possible pulmonary embolism given RV dysfunction. D-dimer 03/31 of 0.99. Patient on room air and had borderline kidney function as noted below, decision was made to hold off on doing CTA chest. Treated with therapeutic Lovenox: Patient, discharged on Eliquis noted above. 8. Suspected CKD stage III ? Creatinine 1.50 on admit, no previous creatinine values since 2019. Creatinine remained stable between 1.4 and 1.5 during hospitalization with good urine output. Outpatient follow-up. 9. Anemia ? Hemoglobin 11.7 on admit but hemoconcentrated, dropped to 9.5 with IV fluid resuscitation. Remained stable at 9-10 during hospitalization. Iron studies consistent with mild iron deficiency anemia. Folate and B12 levels normal. Outpatient follow up. Total clinical time spent by myself addressing the patient's discharge needs: 45 minutes. Physical Exam Const alert, oriented x3 and no apparent distress Constitutional Narrative: Elderly male, thin and cachectic appearing, sitting up comfortably in bed, conversing normally, no acute distress. General Appearance: cooperative and comfortable HEENT normocephalic, head/scalp atraumatic, hearing grossly normal bilaterally and nasal mucous membranes and turbinates normal Eyes PERRL, EOMs intact bilaterally and conjunctivae normal Neck full ROM, no lymphadenopathy and supple Lymph Lymphatic: no lymphadenopathy noted Chest inspection of chest normal Resp normal respiratory effort and no use of accessory muscles Resp Narrative: Breathing comfortably on room air. Mildly decreased breath sounds in right base, otherwise good air movement throughout, no wheezing or crackles noted. Cardio regular rate, regular rhythm, no murmurs and peripheral pulses 2+ throughout GI normal to inspection, nondistended, normoactive bowel sounds, soft to palpation, non-tender and non-distended Back/Spine normal ROM Extremity normal to inspection, full ROM and no pedal edema Skin no rashes or lesions noted Neuro no focal motor deficits and no sensory deficits noted Speech: speech normal Psych mental status grossly normal Medical Records Data Medical Nutrition Assessment Dietitian: Malnutrition Criteria Met Start: 03/31/23 12:17 Freq: Status: Active Protocol: Document 04/03/23 13:54 AG (Rec: 04/03/23 13:54 AG Desktop) Nutrition Malnutrition Evidence of Malnutrition Exists Yes Malnutrition (severe): Chronic Evidenced By Suboptimal Energy Intake ( Severe),Weight Loss (Severe), Physical Changes (Severe) Clinical Problem Chronic Disease or Condition Related Malnutrition Etiology severe, chronic malnutrition related to inadequate energy intake w/ increased energy needs d/t lung cancer Signs/Symptoms as evidenced by unintentional wt loss of 34.6#/22% x 1 month , estimated PO intake meeting <50% of estimated energy needs x 1-2 months 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 ASSISTANT, 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, BMI 17.0 Status Active Problem Recommendation Dietitian Recommendations/Changes regular diet- texture/ consistency per COURT OPERATIONS CLERK, will add fortified foods and magic cup w/ dinner given evidence of malnutrition Weight / BMI Weight Weight: 58 kg Body Mass Index (BMI) 17.3 ABG / Lab / Microbiology Data 04/02/23 05:00 04/03/23 06:35 Laboratory: Laboratory Results - last 24 hr 03/31/23 10:02: Vit D 1,25-Dihydroxy 15.6 L 04/03/23 06:35: Sodium 141, Potassium 3.5, Chloride 111 H, Carbon Dioxide 25.0, Anion Gap 5, BUN 25 H, Creatinine 1.41 H, Estim Creat Clear Calc 42.28, Est GFR (MDRD) Af Amer 65, Est GFR (MDRD) Non-Af 53 L, BUN/Creatinine Ratio 17.7, Glucose 138 H, Calcium 11.9 H, Phosphorus 2.5, Magnesium 2.1 Microbiology: Microbiology 04/02/23 08:15 Sputum, Expectorated/Coughed Gram Stain - Final 04/02/23 08:15 Sputum, Expectorated/Coughed Respiratory Culture - Preliminary Appears to be normal respiratory ruth. Further studies to follow. 03/31/23 11:00 Sputum, Expectorated/Coughed Gram Stain - Final 03/31/23 11:00 Sputum, Expectorated/Coughed Respiratory Culture - Final 03/31/23 02:27 Urine, Clean Catch Legionella Antigen - Final 03/31/23 02:27 Urine, Clean Catch Streptococcus pneumoniae Antigen (M - Final D/C Instructions Discharge Diet: No restrictions Weight Bearing Status: Full weight bearing Meaningful Use Info Meaningful Use Diagnoses (Choose all that apply): None applicable Discharge Plan Admission Admit Date/Time: 03/30/23 23:18 Primary Reason for Your Visit: constipation, weight loss Attending Provider: Lex Banerjee Primary Care Provider: Kimmy Oswald Consulting Providers: Kiko Otero Instructions Additional Instructions / Restrictions: Please start taking Eliquis twice daily and Lopressor twice daily for your atrial fibrillation. Start taking pantoprazole twice daily for your acid reflux. Start taking MiraLAX daily and senna twice daily to avoid further issues with constipation. Take 3 more days of levofloxacin and metronidazole to complete a 7-day course of antibiotics total. Please follow-up with your primary care doctor within the next 1 to 2 weeks. Please also follow-up with your cancer doctor at [facility] in the next 1 to 2 weeks as well. Discharge Orders/Prescriptions Prescriptions: New pantoprazole 40 mg Tablet,Delayed Release (Dr/Ec) 40 mg PO BID 30 Days Qty: 60 0RF metoprolol tartrate 25 mg Tablet 25 mg PO BID 30 Days Qty: 60 0RF Eliquis 5 mg tablet 5 mg PO BID 30 Days Qty: 60 0RF levofloxacin 750 mg tablet 750 mg PO DAILY 3 Days Qty: 3 0RF metronidazole 500 mg tablet 500 mg PO BID 3 Days Qty: 6 0RF polyethylene glycol 3350 [Miralax] 17 gram powder in packet 17 g PO DAILY 30 Days Qty: 30 0RF senna 8.6 mg capsule 8.6 mg PO BID 30 Days Qty: 60 0RF Continued aspirin 81 MG tablet,chewable 81 mg PO DAILY@0800 Discontinued hydroxychloroquine 200 MG tablet 100 mg PO DAILYCM Referrals / Follow Up: Kimmy Oswald DO [Primary Care Provider] - Care Physician,No Primary [Non-Staff] - Disposition Disposition (needs filled in before D/C Order can be placed): Home, Self Care Charges/Coding Visit Charges Inpatient E&M: 57455 Disch Hosp >30min
--- NOTE | 2023-04-03 14:45 | CASEMGMT ---
Addendum entered by Delma Mathis 04/03/23 15:08: LORNE REECE updated by FOOD CHEMIST that patient states oxygen at home was his friends. LORNE REECE in to discuss home oxygen at discharge. Patient states he himself does not have oxygen setup. DME list reviewed and prefers [employer]. Script received and referral sent to [employer] via [email or web address]. Tank arranged to be delivered to patient's room. Original Note: Patient has order for discharge. Discharging on Eliquis, pharmacy call and $0 copay. LORNE REECE in to discuss needs at discharge. Patient states he has home oxygen at home with portability but does not know DME company. LORNE REECE instructed patient have friend bring oxygen tank from home for at discharge and then we will look on tank for DME company. Patient denied needs or help at discharge. Patient had no further questions or concerns.
[2023-04-03] MEDS: Pamidronate Disodium 60 MG in 0.9% Normal Saline (500mL Bag) 500 ML 250 MG IV (15:45)
--- NOTE | 2023-04-03 15:45 | PHA.DC.MC.R ---
Pharmacy [facility] has performed discharge medication reconciliation and counseling for this patient. This [facility] spoke to Dr. Banerjee regarding levofloxacin frequency. Ordered as 750mg daily, based on patient's CrCl of 42 mL/min frequency should be Q48. TORB to tell patient to take Q48H rather than send a new Rx. Patient and nurse updated. 1. APIXABAN 5MG PO BID 2. LEVOFLOXACIN 750MG PO Q48 3. METOPROLOL TARTRATE 25MG PO BID 4. METRONIDAZOLE 500MG PO BID X 3 DAYS 5. PANTOPRAZOLE 40MG PO BID 6. MIRALAX 17GM PO DAILY 7. SENNA 8.6MG PO BID The patient's discharge medication list was reviewed for discrepancies and discrepancies were resolved. The patient was counseled on the following discharge medications and changes in medications for homegoing were reviewed. The Reason for Use, instructions for use, and potential side effects were reviewed for all new medications. The patient's questions regarding all of their medications were answered. The patient was able to verbally demonstrate an understanding of their discharge medications. Patient counseled by student recruiterPete. Medications at Discharge Home Medications aspirin 81 mg chewable tablet 81 mg PO DAILY@0800 [facility] 04/11/18 apixaban 5 mg tablet (Eliquis) 5 mg PO BID 30 days #60 tabs 04/03/23 levofloxacin 750 mg tablet 750 mg PO DAILY 3 days #3 tabs 04/03/23 metoprolol tartrate 25 mg tablet 25 mg PO BID 30 days #60 tabs 04/03/23 metronidazole 500 mg tablet 500 mg PO BID 3 days #6 tabs 04/03/23 pantoprazole 40 mg tablet,delayed release 40 mg PO BID 30 days #60 tabs 04/03/23 polyethylene glycol 3350 17 gram oral powder packet (Miralax) 17 g PO DAILY 30 days #30 ea 04/03/23 sennosides 8.6 mg capsule (senna) 8.6 mg PO BID 30 days #60 caps 04/03/23
[2023-04-03 15:55] VITALS: BP 115/73; PULSE 72; RESP 16; TEMP 36.7; O2SAT 94
== END 2023-04-03 18:40 | disposition home or self-care (01) | DRG 308 ==
LOC: ED 23:38 → PCU 23:47
PROVIDERS: Anesthesiology; Internal Medicine Gastroenterology; Surgery; Admitting Provider Internal Medicine; Emergency Provider Emergency Medicine; PCP Internal Medicine; Referring Provider Internal Medicine; Visit Provider Hospitalist
PROC: 0DJ08ZZ Inspection of Upper Intestinal Tract, Via Natural or Artificial Opening Endoscopic (ICD-10-PCS; CPT 43235; principal; 2023-04-02 12:25)
DX: I48.0 Paroxysmal atrial fibrillation (principal); J69.0 Pneumonitis due to inhalation of food and vomit; I50.21 Acute systolic (congestive) heart failure; E43 Unspecified severe protein-calorie malnutrition; J15.9 Unspecified bacterial pneumonia; I85.00 Esophageal varices without bleeding; N17.9 Acute kidney failure, unspecified; C34.31 Malignant neoplasm of lower lobe, right bronchus or lung; Z68.1 Body mass index [BMI] 19.9 or less, adult; D63.1 Anemia in chronic kidney disease; K26.9 Duodenal ulcer, unspecified as acute or chronic, without hemorrhage or perforation; N18.30 Chronic kidney disease, stage 3 unspecified; K56.41 Fecal impaction; D50.9 Iron deficiency anemia, unspecified; E87.6 Hypokalemia; E83.52 Hypercalcemia; K21.9 Gastro-esophageal reflux disease without esophagitis; K25.9 Gastric ulcer, unspecified as acute or chronic, without hemorrhage or perforation; R13.12 Dysphagia, oropharyngeal phase; Z79.01 Long term (current) use of anticoagulants; Z79.82 Long term (current) use of aspirin; Z79.899 Other long term (current) drug therapy; Z87.891 Personal history of nicotine dependence
CPT/HCPCS: 36415; 71045; 74018; 74177; 74221; 80048; 80053; 80061; 81001; 82607; 82652; 82728; 82746; 83540; 83550; 83605; 83735; 83970; 84100; 84443; 84484; 85025; 85027; 85379; 85610; 85730; 87070; 87205; 87449; 88305; 92507; 92526; 92610; 93005; 93306; 97161; 97166; 97802; 97803; 99285; J7030; J7040; J7120; Q9967; A4216; J2405; J2430

== ENCOUNTER 2023-05-05 00:36 | Emergency (ER) | payer MEDICARE, MEDICAID, SELFPAY ==
[2023-05-05] VITALS (59 sets, daily range): BP systolic 83–177; BP diastolic 59–97; PULSE 124–174; RESP 0–34; TEMP 36.4–36.9; O2SAT 93–99; BMI 19.6
[2023-05-05] MEDS: 0.9% Normal Saline (1000mL) 1,000 ML 150 ML IV (01:03)
[2023-05-05 01:09] LABS: Absolute Lymphocyte Count 0.78 X10^3/uL (0.83-4.51); Absolute Neutrophil Count 11.6 X10^3/uL (2.0-7.7); Basophil# 0.07 X10^3/uL; Basophil% 0.5 % (0-1); Eosinophil# 0.13 X10^3/uL; Hemoglobin 10.2 g/dL (13.0-16.5); Lymphocyte # 0.78 X10^3/ul (0.83-4.51); Lymphocyte % 5.9 % (19-41); Mean Corpuscular Hgb 27.8 pg (27.0-32.0); Mean Corpuscular Volume 92.6 fL (80-94); Mean Platelet Vol. 10.9 fl (6.2-12.0); Monocyte# 0.66 X10^3/uL; NRBC Flagged by Analyzer 0 % (0-5); Neutrophil % 87.2 % (47-70); Platelet Count 483 K/mm3 (150-450); RBC Distribution Width CV 15.5 % (11.6-14.6); Red Blood Count 3.67 M/mm3 (4.6-6.2); White Blood Count 13.3 K/mm3 (4.4-11.0)
[2023-05-05] MEDS: dilTIAZem 25 MG/5 ML Vial 10 MG IV BOLUS (01:09)
--- NOTE | 2023-05-05 01:20 | RAD_ITS ---
EXAM: XR CHEST, 1 VIEW CLINICAL INDICATION: sob TECHNIQUE: Frontal view of the chest. COMPARISON: 03/30/2023. FINDINGS: LUNGS AND PLEURAL SPACES: Complete opacification of the right hemithorax. No pneumothorax. No effusion. HEART: Unremarkable. Cardiac silhouette not enlarged. MEDIASTINUM: Central airways and mediastinal contour are unremarkable. BONES/JOINTS: Unremarkable. No acute fracture. SOFT TISSUES: Unremarkable. RAD/Chest 1 View (Portable) IMPRESSION: Complete opacification of the right hemithorax. Electronically Signed: Magno Rico MD at 2:28 EDT ,
--- NOTE | 2023-05-05 01:39 | ED.VIS.DYS ---
HPI History of Present Illness Chief Complaint: Shortness of Breath Informant: patient Onset/Context/Timing Onset: Days Narrative Narrative: Patient presents via EMS secondary to increased shortness of breath over the past 4 days or so. Patient reports a history of lung cancer but states he will not let them do surgery. He was noted to have A-fib RVR on the prehospital EKG. When I asked the patient if he had a history of A-fib he denies. He is noted to be on Eliquis and he states they put him on that because he was laying around in bed a lot and they did not want him to get a blood clot. When I look at records patient was just admitted to the hospital March 30 - with A-fib RVR and has a history of paroxysmal A-fib. He tells me he is taking his Eliquis, but wants to stop it because it makes his feet swell. [facility] Medical History (Updated 05/05/23 @ 04:[address] Mariam Steele MD) Arrhythmia Atrial fibrillation Lung cancer Lupus Home Medications aspirin 81 mg chewable tablet 81 mg PO DAILY@0800 heart [facility] 04/11/18 [History Last Taken Unknown] apixaban 5 mg tablet (Eliquis) 5 mg PO BID 30 days #60 tabs 04/03/23 [Rx Last Taken Unknown] metoprolol tartrate 25 mg tablet 25 mg PO BID 30 days #60 tabs 04/03/23 [Rx Last Taken Unknown] pantoprazole 40 mg tablet,delayed release 40 mg PO BID 30 days #60 tabs 04/03/23 [Rx Last Taken Unknown] polyethylene glycol 3350 17 gram oral powder packet (Miralax) 17 g PO DAILY 30 days #30 ea 04/03/23 [Rx Last Taken Unknown] sennosides 8.6 mg capsule (senna) 8.6 mg PO BID 30 days #60 caps 04/03/23 [Rx Last Taken Unknown] hydroxychloroquine 200 mg tablet 200 mg PO DAILY 05/05/23 [History Last Taken Unknown] Allergy/AdvReac Type Severity Reaction Status Date / Time Penicillins Allergy Mild Rash Verified 05/05/23 00:37 amoxicillin Allergy Rash Verified 05/05/23 00:37 Social History Smoking Status: Former smoker ROS ROS ED Constitutional Constitutional ED: Denies chills or fever(s) Eyes Eyes: Denies discharge from eye(s) ENT ENT ED: Denies discharge from eye(s), rhinorrhea or sore throat Cardiovascular Cardiovascular: Reports chest pain; Denies palpitations Respiratory/Chest Respiratory/Chest: Reports cough and dyspnea Gastrointestinal Gastrointestinal: Denies abdominal pain, diarrhea, nausea or vomiting Genitourinary Genitourinary ED: Denies dysuria Musculoskeletal Musculoskeletal: Denies back pain or extremity pain Integumentary Denies Abrasions or rash Neurologic Neurologic: Reports weakness; Denies headache(s) Allergic/Immunologic Allergic/Immunologic ED: Denies lip swelling or urticaria EXAM Physical Exam Const Vital Signs: 05/05/23 00:41 05/05/23 00:46 05/05/23 00:47 Temperature 97.6 F L Temperature Source Temporal Pulse Rate 172 H Respiratory Rate 22 H Respiratory Effort Short of Breath Respiratory Pattern Tachypnea Blood Pressure 177/97 H Blood Pressure Mean 123 Pulse Ox 98 Oxygen Delivery Method Nasal Cannula Oxygen Flow Rate (L/min) 6 05/05/23 01:14 05/05/23 02:00 05/05/23 02:41 Temperature 97.6 F L Temperature Source Temporal Pulse Rate 141 H 140 H 142 H Respiratory Rate 22 H 24 H Respiratory Effort Respiratory Pattern Blood Pressure 109/70 102/73 100/78 Blood Pressure Mean 83 82 85 Pulse Ox 95 95 Oxygen Delivery Method Nasal Cannula Nasal Cannula Oxygen Flow Rate (L/min) 5 5 05/05/23 03:00 05/05/23 03:00 Temperature 98.2 F Temperature Source Oral Pulse Rate 124 H 129 H Respiratory Rate 21 H 19 H Respiratory Effort Respiratory Pattern Blood Pressure 96/78 96/78 Blood Pressure Mean 84 84 Pulse Ox 99 99 Oxygen Delivery Method Room Air Room Air Oxygen Flow Rate (L/min) Positive cachectic General Appearance ED: cachectic Nutritional Appearance: cachectic HEENT Reports moist mucous membranes Eyes EOMs intact bilaterally Resp Resp Narrative: Good breath sounds noted on the left. Absent breath sounds noted on the right. Trachea is midline. Cardio Cardio Narrative: Heart is irregularly irregular and tachycardic. GI GI Narrative: Abdomen soft with no significant tenderness to palpation. Extremity Extremity Narrative: No significant lower extremity edema appreciated at this time. Neuro oriented x3 Psych Psych Narrative: Flat affect MDM MDM MDM Narrative Medical decision making narrative: Patient placed on personalized living assistant. EKG obtained to evaluate for cardiac arrhythmia/ischemia. Chest x-ray obtained to evaluate for acute lung pathology, cardiac size, or mediastinal abnormality. Labwork obtained to evaluate for leukocytosis, anemia, and electrolyte derangement. Patient given 10 mg of IV Cardizem for rate control. I was able to review the patient's discharge summary from his hospitalization 1 month ago. At that time he was treated for hypercalcemia along with A-fib RVR and dysphagia. Per these records patient follows with oncology at [facility]. History & Record Review Discussion w/independent historian: Patient Additional record(s) reviewed:: Prior inpatient record, Prior ED visit and Prior labs Lab Data Attestation: I reviewed the patient's lab results. Labs: Laboratory Results - last 24 hr 05/05/23 05/05/23 00:26 03:30 WBC 13.3 H RBC 3.67 L Hgb 10.2 L Hct 34.0 L MCV 92.6 MCH 27.8 MCHC 30.0 L RDW Std Deviation 53.0 H RDW Coeff of Presley 15.5 H Plt Count 483 H MPV 10.9 Immature Gran % (Auto) 0.400 Neut % (Auto) 87.2 H Lymph % (Auto) 5.9 L [place] % (Auto) 5.0 Eos % (Auto) 1.0 Baso % (Auto) 0.5 Absolute Neuts (auto) 11.6 H Absolute Lymphs (auto) 0.78 L Nucleated RBC % 0 Sodium 136 Potassium 4.2 Chloride 105 Carbon Dioxide 27.0 Anion Gap 4 L BUN 23 H Creatinine 1.17 Estim Creat Clear Calc 57.71 Est GFR (MDRD) Af Amer 80 Est GFR (MDRD) Non-Af 66 BUN/Creatinine Ratio 19.7 Glucose 134 H Calcium 12.8 H* Troponin I High Sens 25 22 B-Natriuretic Peptide 551.3 H Radiography Chest X-Ray - ED: 1 View and - (Complete whiteout of the right lung. Trachea is midline.) Diagnostic Testing: Clinical Impression(s) from Imaging Studies Chest X-Ray 05/05/23 01:20 IMPRESSION: Complete opacification of the right hemithorax. Electronically Signed: Magno Rico MD at 2:28 EDT , Chest CTA 05/05/23 02:06 IMPRESSION: 1. Complete atelectasis/consolidation of the right lung with complete obstruction of the distal right mainstem bronchus. 2. Very large right pleural effusion with mild mediastinal shift to the left. 3. No pulmonary embolism or dissection. Electronically Signed: Magno Rico MD at 3:10 EDT , EKG Initial EKG: Attestation: I personally reviewed and interpreted this EKG as follows: Interpretation: Atrial Fibrillation (A-fib RVR with ventricular rate of 175. Lateral precordial ST depression.) Treatment and Re-Evaluation :: CBC was a white count of 13.3 with 87% neutrophils. Hemoglobin is 10.2. Chemistry studies reveal a BUN of 23 and a creatinine 1.17. His calcium is elevated at 12.8. Initial troponin is 25 with a 2-hour repeat troponin of 22. BNP is elevated at 551. Portable chest x-ray per my interpretation reveals complete whiteout of the right lung. Trachea appears midline. EKG is A-fib RVR with ventricular rate in the 170s. CTA of the chest is obtained. This reveals complete atelectasis/consolidation of the right lung with complete obstruction of the distal right mainstem bronchus. There is a very large right pleural effusion with mild mediastinal shift to the left. After 10 mg of IV Cardizem patient's heart rate went from the 170s to 140. His systolic blood pressure is now between 100-105. On review of prior records patient did well with amiodarone bolus and drip on last admission so this was initiated again. Patient is given IV fluids for his hypercalcemia. His oxygen saturations have maintained in the mid to high 90s on 5 L nasal cannula. I did discuss test results with the patient. He is unable to tell me why he has not pursued any treatment for his cancer at this time. When I asked him if he would want to be intubated if his breathing were to get worse he hesitated and stated that he would have to think about it. I advised him that I do feel he needs pulmonology and critical care availability with a thoracentesis which I am unable to have performed this weekend here at [place]. He states he would like to go to [place]. Patient has been accepted to the ICU at [facility] [place]. We will send images along on a disc per their request. Discharge Plan Triage Chief Complaint: Shortness of Breath ED Provider: Mariam Steele Dx/Rx/DC Orders Clinical Impression: Pleural effusion, Lung cancer, Atrial fibrillation with rapid ventricular response, Hypercalcemia Prescriptions: No Action aspirin 81 MG tablet,chewable 81 mg PO DAILY@0800 pantoprazole 40 mg Tablet,Delayed Release (Dr/Ec) 40 mg PO BID 30 Days Qty: 60 0RF metoprolol tartrate 25 mg Tablet 25 mg PO BID 30 Days Qty: 60 0RF Eliquis 5 mg tablet 5 mg PO BID 30 Days Qty: 60 0RF polyethylene glycol 3350 [Miralax] 17 gram powder in packet 17 g PO DAILY 30 Days Qty: 30 0RF senna 8.6 mg capsule 8.6 mg PO BID 30 Days Qty: 60 0RF hydroxychloroquine 200 mg tablet 200 mg PO DAILY Primary Care Provider: Kimmy Oswald Referrals: Kimmy Oswald DO [Primary Care Provider] - Disposition Disposition: Acute Care Hospital Discharge Location: [facility]
[2023-05-05 01:40] LABS: Anion Gap 4 (5-15); BUN 23 mg/dL (7-18); BUN/Creat Ratio 19.7 RATIO (10-20); Calcium,Total 12.8 mg/dL (8.5-10.1); Chloride 105 mmol/L (98-107); Creatinine, Serum 1.17 mg/dL (0.70-1.30); EST Glomerular Filtration Rate 66 mL/min (>60); Est Glom Filt Rate - Afr Amer 80 mL/min (>60); Estimated Creatinine Clearance 57.71 ml/min; Glucose 134 mg/dL (74-106); Potassium 4.2 mmol/L (3.5-5.1); Sodium Level 136 mmol/L (136-145); Troponin-I HS (w/2H Reflex) 25 pg/mL (3.0-78.0)
[2023-05-05] MEDS: 0.9% Normal Saline (1000mL) 1,000 ML 999 ML IV (01:55)
[2023-05-05] MEDS: fentaNYL 100 MCG/2 ML Ampul 25 MCG IV (01:55)
--- NOTE | 2023-05-05 02:06 | CT_ITS ---
EXAM: CT ANGIOGRAPHY CHEST WITHOUT AND WITH INTRAVENOUS CONTRAST CLINICAL INDICATION: dyspnea, right lung mass TECHNIQUE: Helically acquired angiography images were obtained of the chest without and with intravenous contrast. This CT exam was performed using one or more of the following dose reduction techniques: automated exposure control, adjustment of the mA and/or kV according to patient size, and/or use of iterative reconstruction technique. MIP reconstructed images were created and reviewed. CONTRAST: 100 cc of Isovue-370 IV. RADIATION DOSE: CTDIvol = 7.02 mGy, DLP = 289.57 mGy-cm COMPARISON: No relevant prior studies available. FINDINGS: PULMONARY ARTERIES: Unremarkable. Normal in caliber. No evidence of pulmonary embolism. AORTA: Unremarkable. Normal in caliber. No evidence of dissection. GREAT VESSELS OF AORTIC ARCH: Unremarkable. Normal in caliber. No evidence of dissection. LUNGS AND PLEURAL SPACES: Complete atelectasis/consolidation of the right lung with complete obstruction of the distal right mainstem bronchus. Very large right pleural effusion with mild mediastinal shift to the left. Small left pleural effusion. No mass. No pneumothorax. HEART: Unremarkable. Heart size is normal. No pericardial effusion. No significant coronary artery calcifications. MEDIASTINUM: No definite mediastinal mass. THYROID: Unremarkable. No thyroid lesions. BONES/JOINTS: Unremarkable. No suspicious lytic or blastic abnormality. CT/CTA Chest W/WO Contrast IMPRESSION: 1. Complete atelectasis/consolidation of the right lung with complete obstruction of the distal right mainstem bronchus. 2. Very large right pleural effusion with mild mediastinal shift to the left. 3. No pulmonary embolism or dissection. Electronically Signed: Magno Rico MD at 3:10 EDT ,
[2023-05-05 02:36] LABS: BNP,B-Type NATRIURETIC PEPTIDE 551.3 pg/mL (0-100)
[2023-05-05] MEDS: Amiodarone 360 MG in Dextrose 5% Viaflo Bag 192.8 ML 33.2999999999999972 MG CONT INF (02:41)
[2023-05-05 03:05] LABS: Reflex Troponin-HS? (from REC) Y
[2023-05-05 03:58] LABS: Troponin-I HS 22 pg/mL (3.0-78.0)
--- NOTE | 2023-05-05 05:22 | ED.RN ---
CALLED [facility] TO SET UP RIDE FOR PT. THEY GAVE AN ETA OF [phone]. I REQUESTED [facility], AND SPECIFIED THEY TRY ANYWHERE AND EVERYWHERE. I THEN HAD TO CALL THEM LATER AT 0520 ASKING FOR AN UPDATE, THEY SAID [place] TRIED [facility] AND [facility]. BOTH SAID THEY WERE UNAVAILABLE. I ASKED THEY ALSO TRY OUTSOURCING TO [facility], [facility], [facility], AND MORE. THEY THEN CALLED AT -[phone] SAYING THEY TRIED [facility], [facility] WHO SAID THEY DON'T GO TO [place]. AND [facility] ONLY DOES BLS AND THIS BEING AN ALS THEY ARE THEREFORE UNABLE TO TRANSPORT.
--- NOTE | 2023-05-05 07:16 | ED.RN ---
beside report recieved. pt awake. no distress noted. denies sob. vss. amiodarone drip checked. pt denies needs pr concerns at this time. updated regarding waiting on transport
--- NOTE | 2023-05-05 08:27 | ED.RN ---
called for amiodarone
--- NOTE | 2023-05-05 08:57 | ED.RN ---
Called to give report to [phone] and was put on hold for 8 minutes. Will attempt again.
[2023-05-05] MEDS: Amiodarone 360 MG in Dextrose 5% Viaflo Bag 192.8 ML 16.6999999999999993 MG CONT INF (09:00)
--- NOTE | 2023-05-05 09:10 | ED.RN ---
Nurse called to give report to [phone]. Gave the receptionist secretary a call back number because the nurse was not ready to give report. Will wait to give report.
== END 2023-05-05 09:14 | disposition short-term general hospital (02) ==
PROVIDERS: Emergency Provider Emergency Medicine; PCP Internal Medicine; Visit Provider Emergency Medicine
DX: J90 Pleural effusion, not elsewhere classified (principal); C34.90 Malignant neoplasm of unspecified part of unspecified bronchus or lung; I48.91 Unspecified atrial fibrillation; E83.52 Hypercalcemia; Z79.01 Long term (current) use of anticoagulants; Z79.82 Long term (current) use of aspirin; Z79.899 Other long term (current) drug therapy; Z87.891 Personal history of nicotine dependence
CPT/HCPCS: 71045; 71275; 80048; 83880; 84484; 85025; 93005; 96365; 96366; 96375; 99285; J7030; J7040; Q9967; A4216